=== PATIENT | male | born 1960 | race Caucasian/White ===

== ENCOUNTER → 2018-01-18 00:52 | Outpatient (CLI) | payer OTHER, SELFPAY ==
--- NOTE | 2018-01-18 10:40 | DI.REPORT_ITS ---
SYMPTOM/DIAGNOSIS: S83.241D. TEAR OF MEDIAL MENISCUS MRI RIGHT KNEE: 01/18 MR examination of the knee was performed according to the usual protocol. Note is made of an ACL reconstruction with intact fibers. Appearance is essentially unchanged in comparison with knee MRI of 02/24/17 from the [facility]. Note is again made of mild medial tibiofemoral and patellofemoral articular degenerative changes. Patellar cartilage shows abnormal signal and some clefts noted in the medial facet which are more clearly seen than on the prior examination. No significant patellar subluxation seen. Lateral meniscus appears intact. Medial meniscus is torn with irregularity of the body and posterior horn with a more complex appearance than on the previous examination where there was a vertical tear. No significant collateral ligament injury seen. No significant additional findings. CONCLUSION: 1. 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 Intact reconstructed ACL 3. Body and posterior horn medial meniscal tear, increasing complexity of tear anatomy in comparison with previous MR of 02/24/17.
== END ==
PROVIDERS: PCP Emergency Medicine; Visit Provider Specialist
DX: S83.241D Other tear of medial meniscus, current injury, right knee, subsequent encounter (principal); M25.561 Pain in right knee; M17.11 Unilateral primary osteoarthritis, right knee
CPT/HCPCS: 73721

== ENCOUNTER 2019-05-30 03:06 | Outpatient (CLI) | payer OTHER, SELFPAY ==
[2019-05-30 10:31] LABS: C-Reactive Protein 0.09 mg/dL (0.0-0.3)
[2019-05-30 10:48] LABS: ESR 2 mm/hr (1-20)
[2019-05-30 10:56] LABS: Calculated LDL 102 mg/dL; Cholesterol 159 mg/dL (<200); HDL Cholesterol 46 mg/dL (40-60); Triglyceride 59 mg/dL (<150)
== END 2019-05-30 03:26 ==
PROVIDERS: PCP Emergency Medicine; Visit Provider Emergency Medicine
DX: R53.83 Other fatigue (principal)
CPT/HCPCS: 36415; 80061; 85652; 86140

== ENCOUNTER 2020-01-28 14:00 | Outpatient (CLI) | payer OTHER, SELFPAY ==
--- NOTE | 2020-01-28 13:45 | DI.RAD_ITS ---
EXAM: XR SHOULDER LT COMPLETE 2+V CLINICAL HISTORY: left shoulder pain. TECHNIQUE: 2D digital imaging was performed. COMPARISON: No exams were available for comparison FINDINGS: BONES: No acute fracture is present. No bony destructive lesion is seen. JOINTS: No dislocation present. Mild degenerative changes are seen at the acromioclavicular joint. SOFT TISSUE: Normal. IMPRESSION: Mild degenerative changes of the left AC joint. DATA REPOSITORY: RADIATION DOSE DELIVERED:
== END 2020-01-28 14:20 ==
PROVIDERS: PCP Emergency Medicine; Referring Provider Emergency Medicine; Visit Provider Student in an Organized Health Care Education/Training Program
DX: M19.012 Primary osteoarthritis, left shoulder (principal)
CPT/HCPCS: 73030

== ENCOUNTER 2020-04-10 03:26 | Outpatient (CLI) | payer OTHER, SELFPAY ==
--- NOTE | 2020-04-10 07:15 | DI.MRI_ITS ---
EXAM: MR UPPER JOINT LT WO CLINICAL HISTORY: Failed conservative treatments,TENDINITIS,M75.52,M75.22,M75.82. TECHNIQUE: Multiplanar multisequence MRI was performed. COMPARISON: CR XR SHOULDER LT COMPLETE 2+V from 01/28/2020 FINDINGS: BONES: There is no fracture or contusion pattern. JOINTS: Moderate degenerative changes are seen at the acromioclavicular joint. The glenohumeral join t is normal. TENDONS: Supraspinatus: Mild tendinosis of the supraspinatus tendon. Focus of hyperintense signal seen on the bursal surface of the supraspinatus tendon at its insertion site consistent with a small partial tea r. Infraspinatus: Unremarkable. Subscapularis: Hyperintense signal is seen in the subscapularis tendon near its insertion site consis tent with a partial tear and/or tendinosis. Teres Minor: Unremarkable. Biceps and Tennyson: Unremarkable. MUSCLES: Unremarkable. GLENOID LABRUM: Unremarkable on this noncontrast examination. SOFT TISSUES: Mild edema is seen in the soft tissues of the anterior shoulder. LIGAMENTS: Unremarkable. OTHER: Mild edema is seen in the subacromial subdeltoid bursa. IMPRESSION: 1. Small partial bursal surface tear of the supraspinatus tendon. 2. Hyperintense signal seen in the subscapularis tendon near its insertion site consistent with a par tial tear and/or tendinosis. 3. Moderate degenerative changes of the AC joint. 4. Edema seen in the soft tissues anterior to the shoulder. DATA REPOSITORY:
== END 2020-04-10 03:46 ==
PROVIDERS: PCP Emergency Medicine; Visit Provider Student in an Organized Health Care Education/Training Program
DX: M75.112 Incomplete rotator cuff tear or rupture of left shoulder, not specified as traumatic (principal); M19.012 Primary osteoarthritis, left shoulder; M75.52 Bursitis of left shoulder; M75.82 Other shoulder lesions, left shoulder
CPT/HCPCS: 73221

== ENCOUNTER 2020-06-30 10:46 | Outpatient (CLI) | payer OTHER, SELFPAY ==
--- NOTE | 2020-06-30 08:45 | DI.RAD_ITS ---
EXAM: XR KNEE RT 4V AP,LAT,GREG,PAT CLINICAL HISTORY: L knee pain. TECHNIQUE: 2D digital imaging was performed. COMPARISON: No exams were available for comparison FINDINGS: BONES: No acute fracture is present. No bony destructive lesion is seen. Findings of a prior ACL repa ir are noted. JOINTS: The knee is normally aligned. There is a small joint effusion. Mild degenerative changes are seen in the right knee characterized by joint space narrowing and periarticular spurring. The findi ngs are most marked in the medial femoral tibial and patellofemoral joint. SOFT TISSUE: Normal. IMPRESSION: 1. Mild degenerative changes of the right knee. 2. Small joint effusion. 3. Prior ACL repair. DATA REPOSITORY: RADIATION DOSE DELIVERED:
== END 2020-06-30 10:47 | disposition home or self-care (01) ==
PROVIDERS: PCP Emergency Medicine; Referring Provider Emergency Medicine; Visit Provider Physician Assistant
DX: M17.11 Unilateral primary osteoarthritis, right knee (principal); M25.461 Effusion, right knee; M25.569 Pain in unspecified knee
CPT/HCPCS: 73564

== ENCOUNTER 2020-07-17 01:13 | Outpatient (CLI) | payer MEDICAID, SELFPAY ==
--- NOTE | 2020-07-17 08:45 | DI.MRI_ITS ---
EXAM: MR LOWER JOINT RT WO CLINICAL HISTORY: Medial meniscal tear,POST TRAUMATIC OA,S83.241A,M17.31,PRIOR SURGERIES. TECHNIQUE: Multiplanar multisequence MRI was performed. COMPARISON: MR MRI R LOWER JOINT WO CONT from 01/18/2018 CR XR KNEE RT 4V AP,LAT,GREG,PAT from 06/30/2020 CR XR KNEE RT 4V AP,LAT,GREG,PAT from 06/30/2020 FINDINGS: There is a small joint effusion. There is mild irregularity at the patellar cartilage. No focal de fect is seen. The patient has had a previous ACL repair which appears intact. There is no change in the appearance from the previous exam. The posterior horn of the medial meniscus is diminutive, con sistent with postsurgical changes. Small bony densities seen adjacent to the posterior horn of the m edial meniscus. This density can be seen on plain films.. The lateral meniscus appears intact. The posterior cruciate ligament, medial and lateral collateral ligaments and extensor mechanism appear i ntact. IMPRESSION: Intact ACL graft. Postsurgical changes of the posterior horn and body of the medial meniscus. No de finite superimposed tear is seen. DATA REPOSITORY:
== END 2020-07-17 01:14 ==
LOC: DI 01:14
PROVIDERS: PCP Emergency Medicine; Visit Provider Student in an Organized Health Care Education/Training Program
DX: M17.31 Unilateral post-traumatic osteoarthritis, right knee (principal); M25.461 Effusion, right knee; S83.241A Other tear of medial meniscus, current injury, right knee, initial encounter
CPT/HCPCS: 73721

== ENCOUNTER 2020-09-01 02:50 | Outpatient (CLI) | payer MEDICAID, SELFPAY ==
[2020-09-01 11:59] LABS: Source Nasal/Nares
[2020-09-01 15:51] LABS: COVID-19 PCR Negative (Negative)
== END 2020-09-01 02:51 | disposition home or self-care (01) ==
LOC: LBO 02:50
PROVIDERS: PCP Emergency Medicine; Visit Provider Student in an Organized Health Care Education/Training Program
DX: Z20.822 Contact with and (suspected) exposure to COVID-19 (principal); Z01.818 Encounter for other preprocedural examination
CPT/HCPCS: 87635

== ENCOUNTER 2020-09-03 11:31 | Day surgery (SDC) | payer OTHER, MEDICAID, SELFPAY ==
[2020-09-03] VITALS (9 sets, daily range): BP systolic 112–136; BP diastolic 61–88; PULSE 70–98; RESP 13–20; TEMP 36–36.6; O2SAT 94–100
[2020-09-03] MEDS: Lactated Ringers 1,000 ML 100 ML IV (11:59)
[2020-09-03] MEDS: ceFAZolin 2 GM/50 ML BAG IVPB (12:53)
[2020-09-03] MEDS: EPINEPHrine 30 MG/30 ML VIAL (13:42)
--- NOTE | 2020-09-03 14:21 | PDOC.DSDIS_ITS ---
Discharge Plan Disposition Patient Disposition: HOME Condition: Stable Discharge Details Attending Provider: Eric Martinez Primary Care Provider: Jack Nicholson Home Meds and New Rx's Prescriptions: New naproxen 250 mg tablet 250 - 500 mg PO BID PRN (Reason: Moderate pain or swelling) Qty: 60 RF: 0 aspirin 81 mg tablet,delayed release (DR/EC) 81 mg PO DAILY 14 Days Qty: 14 RF: 0 oxycodone 5 mg tablet 5 - 10 mg PO Q4H PRN (Reason: moderate to severe pain) Qty: 12 RF: 0 Continued multivitamin [Daily Multi-Vitamin] 1 EACH tablet 1 ea PO DAILY RF: 0 Discontinued ibuprofen 200 MG capsule 1 - 3 cap PO BID PRNRF: 0 Discharge Instructions Additional Instructions: Surgery: Knee arthroscopy with partial medial and lateral meniscectomy, chondroplasty, and synovectomy Activity: Weightbearing as tolerated. Advance range of motion as comfort allows. No knee brace or crutches needed as soon as comfortable. Recommend avoiding deep knee flexion, cutting/pivoting, and squatting for about 6 weeks. A physical therapy prescription will be provided in the office at follow-up if needed. Prescriptions: Aspirin 81 mg take 1 daily to prevent a blood clot for 30 days Naproxen 250 mg take 1-2 every 12 hours with a meal as needed for moderate pain Oxycodone 5 mg take 1-2 every 4-6 hours as needed for severe pain You may use itct-lat-divjubl Tylenol (acetaminophen) as needed for mild pain. These pain medications may be taken all at once or in different combinations as needed. Also, recommend Colace (docusate) as a stool softener as surgery and pain medicine cause constipation. Dressings: Leave dressing in place for 3 days. May then remove and leave open to air or cover incisions with Band-Aids. May shower after 5 days. Follow-up: 10-[address] Martinez (09/15/20 at 9:00 AM) Let us know right away if you develop any redness, drainage, fevers, chest pain, or trouble breathing. Do not drink alcohol or drive for at least 24 hours after anesthesia. Please call the office during business hours with any questions or concerns. Referrals: Eric Martinez MD [ [facility] STAFF PHYSICIAN] - Discharge Orders Discharge Orders: Discharge Order (Routine); Ordered 09/03/20 Ordered By: Eric Martinez DS: Diagnosis Discharge Diagnosis (1) Post-traumatic osteoarthritis of right knee: Status: Acute (2) Tear of medial meniscus of right knee: Status: Acute
--- NOTE | 2020-09-03 14:33 | ROE_ITS ---
Date of service: 09/03/20 Time of Service: 13:30 Operative Note Operative Note DATE OF PROCEDURE: 09/03/20 PRE-OP DIAGNOSIS: Right knee 1. Medial meniscus tear 2. Synovitis 3. Chondromalacia POST-OP DIAGNOSIS: other Right knee 1. Medial meniscus tear 2. Synovitis 3. Chondromalacia 4. Lateral meniscus tear PROCEDURE: Right knee 1. Partial medial & lateral meniscectomy, CPT #50609 2. Greater than 2 compartment synovectomy, CPT #45453: Anteromedial, anterolateral, intercondylar, and patellofemoral 3. Chondroplasty, CPT #00380: Lateral tibial plateau, medial femoral condyle, and trochlea SURGEON: Eric Martinez [place] BAIL[place]: None None ANESTHESIA TYPE: Local By Surgeon and General LMA/ETT Refer to Anesthesia Record ESTIMATED BLOOD LOSS: 5 PATHOLOGY: none sent TOURNIQUET TIME: 0 COMPLICATIONS: None Patient was transported to: PACU Patient's condition: stable Indications: Please see complete medical record for details. Findings: Exam under anesthesia: About 5 degree flexion contracture. Stable endpoint on Radha and anterior drawer testing with a mild amount of increased anterior translation. Negative pivot shift. Full flexion. Stable varus/valgus. Arthroscopic findings: Moderate synovitis patellofemoral, medially, laterally, and intercondylar area. Medial femoral condyle grade 2?3 widespread chondromalacia. Isolated central lateral tibial plateau grade 2 and surrounding grade I chondromalacia. Fairly dispersed grade 1?2 chondromalacia trochlea and patella. Largely intact lateral meniscus with small white zone tear anterior horn. Diminutive post?meniscectomy medial meniscus body/posterior horn junction with horizontal type tear of the posterior horn and slight extension past the junction into the body. Intact root and intact remainder of meniscus body. No loose body. Longstanding ACL reconstruction grossly intact but significant fraying of fibers and separation between bundles of fibers. Procedure Description: In the operating room, genral anesthesia was induced. The patient was positioned supine on the operating room table. All bony prominences were well-padded. Preoperative antibiotics were administered. The knee was prepped and draped in the usual sterile fashion. The correct patient, procedure, and side of the procedure were all verified prior to incision. Exam under anesthesia was performed. 10 cc of 1% lidocaine containing epinephrine was infiltrated about the planned anteromedial and anterolateral knee arthroscopy portals. The portals were established and a complete diagnostic arthroscopy was performed with relevant findings detailed above. The mechanical shaver was used to remove pathologic synovium from the anteromedial, anterolateral, intercondylar, and patellofemoral compartments. Care was taken especially working in the intercondylar area to debride marginal osteophytes and synovitis while preserving the PCL and ACL. The frayed ACL fibers were only gently debrided and the loose and disorganized other fibers and bundles were left to continue to provide the stability as the patient does not have ACL laxity although they were significantly abnormal. The mechanical shaver was directed into the lateral compartment in the [id number] position. It was used to debride fibrillations about the central lateral tibial plateau cartilage. It was also used to excise the small anterior horn lateral meniscus tear to a stable margin. Attention was then directed to the majority of work in the medial compartment. Using a combination of hand instruments including meniscal biters and the power shaver and working through the anteromedial and anterolateral compartments the meniscus was debrided of all torn tissue to a stable margin. Care was taken to preserve as much meniscus tissue was possible. The meniscal remnant was probed and found to have a stable margin, stable root, and no other tears and contoured appropriately into the meniscal body. The arthroscope was directed from anterior lateral into the posterior medial compartment of the knee. There was no loose body, meniscal fragments, or pathology posteriorly. Finally, the mechanical shaver was used to debride frayed cartilage edges about the central and medial trochlea as well as moderate area of cartilage fraying. Under direct arthroscopic visualization an 18-gauge needle was passed into the knee from superolateral into the suprapatellar pouch. The knee was copiously irrigated with arthroscopic fluid until there was a clear effluent before being drained of all fluid. The anteromedial and anterolateral portals were closed in 3-0 Monocryl in a buried interrupted fashion. 20 cc of 1% lidocaine with epinephrine containing 4 mg of morphine was infiltrated into the knee through the previously placed needle. Mastisol, Steri-Strips, and 4 x 4 gauze were applied over the incisions followed by sterile soft roll. The knee was then wrapped gently with an LUNA comressive bandage. The patient awoke from anesthesia without complication and was transferred to the recovery room in a stable condition. Although there was significant tri?compartmental knee pathology, the patellofemoral and lateral compartments were reasonably preserved. The ACL reconstruction is abnormal, but provides enough stability. If the patient's symptoms truly remain isolated to the posterior medial knee, would discuss risks and benefits of medial unicondylar knee arthroplasty.
[2020-09-03] MEDS: fentaNYL 100 MCG/2 ML VIAL IVP ×2 (14:50→15:07)
[2020-09-03] MEDS: oxyCODONE 5 MG TAB PO ×2 (15:38→16:05)
== END 2020-09-03 16:45 | disposition home or self-care (01) ==
PROVIDERS: PCP Emergency Medicine; Visit Provider Student in an Organized Health Care Education/Training Program
PROC: (CPT 29870; principal; 2020-09-03 13:00)
DX: M17.31 Unilateral post-traumatic osteoarthritis, right knee (principal); S83.241A Other tear of medial meniscus, current injury, right knee, initial encounter; S83.281A Other tear of lateral meniscus, current injury, right knee, initial encounter; M65.861 Other synovitis and tenosynovitis, right lower leg; M94.261 Chondromalacia, right knee; X58.XXXA Exposure to other specified factors, initial encounter
CPT/HCPCS: 29876; 29880; J0690; J1100; J1885; J2001; J2405; J3010

== ENCOUNTER 2020-10-13 21:48 | Outpatient (REF) | payer MEDICAID, SELFPAY ==
[2020-10-13 20:37] LABS: Abs Immature Grans 0.01 10^3/uL (0.0-0.06); Absolute Basophil Count 0.03 10^3/uL (0.0-0.2); Absolute Eosinophil Count 0.21 10^3/uL (0.0-0.7); Absolute Lymphocyte Count 1.39 10^3/uL (1.2-3.4); Absolute Monocyte Count 0.68 10^3/uL (0.1-0.8); Basophils % 0.7; Eosinophils % 4.8; HCT 44.4 % (40.0-50.0); Immature Grans % 0.2; Lymphocytes % 31.4; MCH 32.6 pg (27.0-33.0); MCHC 33.8 % (32.0-36.0); MCV 96.5 fL (80-95); MPV 11.1 fL (8.0-11.0); Monocytes % 15.4; Neutrophils % 47.5; Nucleated RBC 0 %; Platelet Count 161 10^3/uL (130-400); RDW 12.5 % (11.8-14.1); RDW-SD 45.1 fL; WBC 4.42 10^3/uL (4.4-10.8)
[2020-10-13 21:09] LABS: ALT 46 U/L (16-63); AST 29 U/L (15-37); Albumin 3.8 g/dL (3.4-5.0); Alkaline Phosphatase 51 U/L (46-116); BUN 14 mg/dL (7-18); Bilirubin, Total 0.5 mg/dL (0.2-1.0); C-Reactive Protein 0.67 mg/dL (0.0-0.3); Calcium 8.4 mg/dL (8.5-10.1); Chloride 108 mmol/L (98-107); Glucose 81 mg/dL (74-106); Potassium 3.7 mmol/L (3.5-5.1); Sodium 145 mmol/L (136-145); TSH 1.43 uIU/mL (0.36-3.74); Total Protein 6.7 g/dL (6.4-8.2)
[2020-10-19 15:48] LABS: IgA 164 mg/dL (85-499); Interpretation (See Note); Tissue Transglutaminase IgA <1.2 U/mL (<4.0)
== END 2020-10-13 21:49 | disposition home or self-care (01) ==
LOC: NCHCN 21:48
PROVIDERS: PCP Emergency Medicine; Visit Provider Emergency Medicine
DX: R53.83 Other fatigue (principal); K58.9 Irritable bowel syndrome, unspecified; E03.9 Hypothyroidism, unspecified
CPT/HCPCS: 80053; 82784; 83516; 84443; 85025; 86140

== ENCOUNTER 2021-01-21 03:41 | Outpatient (CLI) | payer MEDICAID, SELFPAY ==
[2021-01-28 11:16] LABS: Testosterone, Free 11.5 ng/dL (3.87-14.7); Testosterone, Total 677 ng/dL (240-950)
== END 2021-01-21 03:42 | disposition home or self-care (01) ==
LOC: LBO 03:42
PROVIDERS: PCP Emergency Medicine; Visit Provider Emergency Medicine
DX: R53.83 Other fatigue (principal)
CPT/HCPCS: 36415; 84402; 84403

== ENCOUNTER 2021-05-24 03:09 | Outpatient (CLI) | payer MEDICAID, SELFPAY ==
--- NOTE | 2021-05-24 07:00 | DI.RAD_ITS ---
Exam(s) XR LUMBAR SPINE COMPLETE EXAM: XR LUMBAR SPINE COMPLETE CLINICAL HISTORY: low back pain.m54.50. TECHNIQUE: 2D digital imaging was performed. COMPARISON: No exams were available for comparison FINDINGS: No evidence fracture or listhesis. No pars defects. Mild-moderate disc space narrowing evident at L5-S1 level. Facet joints at this level appear unremar kable as do the facet joints at other levels. Sacroiliac joints appear unremarkable. There is no sc oliosis. No osseous lesions and bone density appears normal. IMPRESSION: There is mild-moderate disc space narrowing at L5-S1 level. DATA REPOSITORY: RADIATION DOSE DELIVERED:
== END 2021-05-24 03:29 ==
PROVIDERS: PCP Emergency Medicine; Visit Provider Emergency Medicine
DX: M54.50 Low back pain, unspecified (principal); M48.07 Spinal stenosis, lumbosacral region
CPT/HCPCS: 72110

== ENCOUNTER 2021-06-08 01:20 | Outpatient (CLI) | payer MEDICAID, SELFPAY ==
--- NOTE | 2021-06-08 06:45 | DI.MRI_ITS ---
Exam(s) MR LUMBAR SPINE WO EXAM: MR LUMBAR SPINE WO CLINICAL HISTORY: Disc herniation with chronic low back pain,m51.16. TECHNIQUE: Multiplanar multisequence MRI was performed. COMPARISON: No exams were available for comparison FINDINGS: MR examination of the lumbosacral spine was performed according to the usual protocol. No significan t bony signal abnormality seen. The conus medullaris appears intact. No significant findings from the T11-12 through the L2-3 levels, no central canal spinal stenosis, di sc herniation, or neural foraminal stenosis. At L3-4, there is a mild broad-based right lateral disc herniation, there could be impingement on the right L4 nerve root at this level, please correlate clinically. There are mild disc bulges at L 4 5 and L5-S1. No disc herniation, central canal spinal stenosis, or neural foraminal stenosis at these levels. IMPRESSION: Right lateral disc herniation at L3-4, please correlate clinically regarding any possibility of impin gement right L4 nerve root. DATA REPOSITORY:
== END 2021-06-08 01:40 ==
PROVIDERS: PCP Emergency Medicine; Visit Provider Emergency Medicine
DX: M51.16 Intervertebral disc disorders with radiculopathy, lumbar region (principal)
CPT/HCPCS: 72148

== ENCOUNTER → 2021-09-16 01:47 | Outpatient (CLI) | payer MEDICAID, SELFPAY | PROVIDERS: PCP Family Medicine; Visit Provider Emergency Medicine ==

== ENCOUNTER 2021-09-16 02:21 | Outpatient (CLI) | payer MEDICAID, SELFPAY | END 2021-09-16 02:22 | disposition home or self-care (01) | LOC: LBO 02:21 | PROVIDERS: PCP Family Medicine; Visit Provider Emergency Medicine ==

== ENCOUNTER 2021-09-27 10:08 | Outpatient (CLI) | payer MEDICAID, SELFPAY ==
--- NOTE | 2021-09-27 10:00 | DI.RAD_ITS ---
Exam(s) XR STANDING ALIGNMENT EXAM: XR STANDING ALIGNMENT CLINICAL HISTORY: preoperative. TECHNIQUE: 2D digital imaging was performed. Standing AP views were performed from the pelvis throu gh the ankles. COMPARISON: CR XR KNEE RT 4V AP,LAT,GREG,PAT from 06/30/2020 MR MR LOWER JOINT RT WO from 07/17/2020 FINDINGS: BONES: No acute fracture is present. No bony destructive lesion is seen. The right femoral head proje cts 5 millimeters superior to the left. JOINTS: Knees: Mild narrowing and periarticular spurring of the medial femoral tibial joint space of the left knee. Prior ACL repair. Left knee joint spaces are well maintained. The ankle joints are well maintained. The right hip joint shows acetabular spurring. Minimal spur a cetabular spurring on the left. SOFT TISSUE: Venous varicosities medial left lower leg. IMPRESSION: Degenerative changes and postsurgical changes of the right knee. Mild leg length discrepancy. DATA REPOSITORY: RADIATION DOSE DELIVERED:
== END 2021-09-27 10:09 | disposition home or self-care (01) ==
LOC: DIORS 10:09
PROVIDERS: PCP Family Medicine; Referring Provider Family Medicine; Visit Provider Physician Assistant Surgical
DX: M17.11 Unilateral primary osteoarthritis, right knee (principal); M21.751 Unequal limb length (acquired), right femur; M16.11 Unilateral primary osteoarthritis, right hip; Z98.890 Other specified postprocedural states
CPT/HCPCS: 77073

== ENCOUNTER 2021-10-08 02:41 | Outpatient (CLI) | payer MEDICAID, SELFPAY ==
[2021-10-08 15:21] LABS: HCT 43.5 % (40.0-50.0); HGB 14.6 g/dL (13.5-17.5); MCH 31.9 pg (27.0-33.0); MCHC 33.6 % (32.0-36.0); MCV 95 fL (80-95); MPV 10.2 fL (8.0-11.0); Platelet Count 157 10^3/uL (130-400); RBC 4.57 10^6/uL (4.36-5.78); RDW 12.3 % (11.8-14.1); RDW-SD 43.5 fL; WBC 4.92 10^3/uL (4.4-10.8)
[2021-10-08 16:13] LABS: ALT 39 U/L (16-63); AST 27 U/L (15-37); Alkaline Phosphatase 65 U/L (46-116); Anion Gap 8.1 mmol/L (3-11); BUN 19 mg/dL (7-18); Bilirubin, Total 0.5 mg/dL (0.2-1.0); C-Reactive Protein 0.09 mg/dL (0.0-0.3); CO2 23.9 mmol/L (21.0-32.0); CREATININE 1.1 mg/dL (0.70-1.30); Calcium 8.1 mg/dL (8.5-10.1); Chloride 107 mmol/L (98-107); Glucose 126 mg/dL (74-106); Potassium 4.1 mmol/L (3.5-5.1); Sodium 139 mmol/L (136-145); TSH 0.94 uIU/mL (0.36-3.74); Total Protein 6.8 g/dL (6.4-8.2)
[2021-10-08 22:12] LABS: PSA, Screening 0.9 ng/mL (<=3.5)
== END 2021-10-08 02:42 | disposition home or self-care (01) ==
LOC: LBO 02:41
PROVIDERS: PCP Family Medicine; Visit Provider Emergency Medicine
DX: Z12.5 Encounter for screening for malignant neoplasm of prostate (principal); R53.83 Other fatigue; E03.9 Hypothyroidism, unspecified
CPT/HCPCS: 36415; 80053; 84153; 85027; 84443; 86140

== ENCOUNTER 2021-11-16 00:52 | Outpatient (CLI) | payer MEDICAID, SELFPAY ==
[2021-11-16 14:35] LABS: Hemoglobin A1C 5.5 % (<5.7)
[2021-11-17 10:27] LABS: Parathyroid Hormone,Intact 69 pg/mL (19-88)
[2021-11-18 20:27] LABS: Vitamin D 25 Total 23.4 ng/mL (30-100)
[2021-11-18 20:39] LABS: Magnesium 2.2 mg/dL (1.8-2.4); PHOSPHORUS 2.8 mg/dL (2.6-4.7)
== END 2021-11-16 00:53 | disposition home or self-care (01) ==
LOC: LOS 00:52
PROVIDERS: PCP Family Medicine; Visit Provider Family Medicine
DX: R73.01 Impaired fasting glucose (principal); E83.51 Hypocalcemia
CPT/HCPCS: 36415; 82306; 83036; 83735; 83970; 84100

== ENCOUNTER → 2021-12-06 02:18 | Outpatient (CLI) | payer MEDICAID, SELFPAY ==
--- NOTE | 2021-12-06 06:45 | DI.MRI_ITS ---
Exam(s) MR BRAIN WO EXAM: MR BRAIN WO CLINICAL HISTORY: worsening daily headaches,R51.9 TECHNIQUE: Multiplanar multisequence MRI of the brain was performed. COMPARISON: No exams were available for comparison FINDINGS: CEREBRAL PARENCHYMA: There is no evidence of intracranial hemorrhage, mass effect, or shift of midline structures. There are no extra-axial fluid collections. Ventricles are not enlarged or shifted. There is no significant focal signal abnormality in the cerebellar hemispheres nor within the noris, m idbrain, and thalami. There is no abnormal signal abnormality in the periventricular white matter. No evidence of cerebellar tonsillar ectopia. There is no significant focal signal abnormality evident on diffusion imaging to suggest acute ischem ic event. PITUITARY GLAND: No mass nor parasellar abnormality. No obvious abnormality in the cavernous sinuses. FLOW VOIDS: The expected flow void are noted. No evidence of obvious aneurysm nor obvious vascular ma lformation. PARANASAL SINUSES: : Thickening noted in floor of the right maxillary sinus. Mild mucosal thickening left maxillary sinus no maxillary sinus fluid levels. Sphenoid cells are clear. Right frontal sinu ses are not developed. ORBITS: No obvious findings. IMPRESSION: No significant intracranial findings on this noninfused MRI scan of the brain. DATA REPOSITORY:
== END ==
PROVIDERS: PCP Family Medicine; Visit Provider Nurse Practitioner Adult Health
DX: R51.9 Headache, unspecified (principal)
CPT/HCPCS: 70551

== ENCOUNTER 2021-12-31 08:15 | Outpatient (CLI) | payer MEDICAID, SELFPAY ==
[2022-01-03 11:46] LABS: Lyme Ab w Rflx to Lyme Confirm Negative (Negative)
[2022-01-04 22:24] LABS: Anaplasma phagocytophilum Negative (Negative); B. miyamotoi PCR Negative (Negative); Babesia divergens/MO-1 Negative (Negative); Babesia duncani Negative (Negative); Babesia microti Negative (Negative); Ehrlichia chaffeensis Negative (Negative); Ehrlichia ewingii/canis Negative (Negative); Ehrlichia muris eauclairensis Negative (Negative)
== END 2021-12-31 08:16 | disposition home or self-care (01) ==
LOC: LOS 08:15
PROVIDERS: PCP Family Medicine; Referring Provider Family Medicine; Visit Provider Family Medicine
DX: R53.83 Other fatigue (principal); F32.89 Other specified depressive episodes
CPT/HCPCS: 36415; 87798; 86618

== ENCOUNTER 2022-02-09 17:46 | Emergency (ER) | payer MEDICAID, SELFPAY ==
[2022-02-09 18:04] VITALS: BP 145/91; PULSE 71; RESP 16; TEMP 36.5
--- NOTE | 2022-02-09 18:16 | ED.GENADUL_ITS ---
Discharge Plan Disposition Patient Disposition: HOME Condition: Stable Discharge Details Clinical Impression: Laceration of left calf Primary Care Provider: Cadence Messina ED Provider: Izabela Feliz Home Meds and New Rx's Prescriptions: New cephalexin 500 mg tablet 500 mg PO BID 7 Days Qty: 14 0RF Rx Instructions: Take 1 tablet twice daily with yogurt or probiotic x7 days oxycodone-acetaminophen [Percocet] 5-325 mg tablet 1 tab PO Q8H PRN (Reason: pain) Qty: 6 0RF Rx Instructions: Take 1 tablet up to 3 times daily as needed for moderate severe pain No Action ibuprofen 200 mg tablet 200 mg PO Q6H PRN omeprazole 20 mg capsule,delayed release(DR/EC) 20 mg PO DAILY Qty: 60 6RF Ajovy Autoinjector 225 mg/1.5 mL auto-injector 225 mg subcut QMONTH Qty: 1.5 3RF sumatriptan succinate 100 mg tablet See Rx Instructions PO .COMPLEX Qty: 10 3RF Rx Instructions: take 1 tab at onset of headache; if no relief, may repeat 1 tab after at least 2 hrs; max = 2 tabs/24 hrs PO duloxetine 60 mg capsule,delayed release(DR/EC) 60 mg PO DAILY Qty: 30 1RF multivitamin [Daily Multi-Vitamin] 1 EACH tablet 1 ea PO DAILY Discharge Instructions Instructions: Laceration (ED) Additional Instructions: Please take the antibiotics twice daily x7 days. Keep clean and dry. You may wash under running soap and water after 12 to 24 hours. No soaking no swimming. Please return to the ER for any signs of infection including red streaks, drainage, increased swelling or pain. Have the sutures removed in 7 to 10 days. Follow up with primary care provider in 3-5 days. Return to ED sooner if any worsening or concerns. Increase oral fluids. You may return here to have the sutures removed. Please take Tylenol or Ibuprofen with food every 4-6 hours as needed for pain and swelling. Referrals: Cadence Messina MD [Primary Care Provider] - Return if symptoms worsen Discharge Data Discharge Date/Time-TO BE ENTERED AT DEPARTURE: 02/09/22 19:59 Medical Decision Making 61-year-old male presents to the ER with chief complaint of left calf laceration [place]. He reports that his 900 pound pig brushed up against his leg and he sustained a cut to his left lateral thigh through his pants. His. Were not ripped. He reports that he was able to walk . His last tetanus vaccination was 10 years ago. Bleeding is controlled with pressure. He has full range of motion noted to his extremity. Please see procedure note. 1834: Wound anesthetized with 10 cc of 1% lidocaine with epinephrine. Bleeding controlled patient tolerated well. Will irrigate with at least 3 bottles of sterile normal saline and place patient on antibiotics. Patient was given cephalexin, Percocet. And instructed on home care and suture removal. Patient verbalized understanding. This text was generated using [employer] dictation system, please disregard any oddities of phrase or misspellings. HPI General Mode of arrival: ambulatory . Date/Time Provider Initiated Documentation: 02/09/22 18:03 . Limitations to Documentation: no limitations . Information obtained by: patient, RN notes reviewed and old records reviewed . HPI Narrative: 61-year-old male presents to the ER with chief complaint of left leg laceration which occurred approximately an hour prior to arrival. 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 His jeans did not rip. He has approximately 9 cm full-th ickness laceration noted to the left outer calf. There is active bleeding. This is controlled with pressure. He has full range of motion noted to his extremity. His last tetanus vaccination was in 2009 we will boost him here. No other complaints or injuries noted. He does have a past medical history of migraines, depression and obstructive sleep apnea. Related Data Home Medications Medication Instructions Recorded Confirmed multivitamin (Daily Multi-Vitamin 1 ea PO DAILY 12/12/16 02/09/22 tablet) ibuprofen 200 mg tablet 200 mg PO Q6H PRN 10/13/20 02/09/22 omeprazole 20 mg capsule,delayed 20 mg PO DAILY #60 caps 05/18/21 02/09/22 release fremanezumab-vfrm 225 mg/1.5 mL 225 mg (1.5 mL) subcut QMONTH #1.5 12/28/21 02/09/22 subcutaneous auto-injector (Ajovy) mL sumatriptan succinate 100 mg tablet See Rx Instructions PO .COMPLEX 12/28/21 02/09/22 #10 tabs duloxetine 60 mg capsule,delayed 60 mg PO DAILY #30 caps 01/06/22 02/09/22 release cephalexin 500 mg tablet 500 mg PO BID 7 days #14 tabs 02/09/22 oxycodone-acetaminophen 5 mg-325 1 tab PO Q8H PRN pain #6 tabs 02/09/22 mg tablet (Percocet) Previous Rx's Medication Instructions Recorded omeprazole 20 mg capsule,delayed 20 mg PO DAILY #60 caps 05/18/21 release fremanezumab-vfrm 225 mg/1.5 mL 225 mg (1.5 mL) subcut QMONTH #1.5 12/28/21 subcutaneous auto-injector (Ajovy) mL sumatriptan succinate 100 mg tablet See Rx Instructions PO .COMPLEX 12/28/21 #10 tabs duloxetine 60 mg capsule,delayed 60 mg PO DAILY #30 caps 01/06/22 release cephalexin 500 mg tablet 500 mg PO BID 7 days #14 tabs 02/09/22 oxycodone-acetaminophen 5 mg-325 1 tab PO Q8H PRN pain #6 tabs 02/09/22 mg tablet (Percocet) Allergies Allergy/AdvReac Type Severity Reaction Status Date / Time prednisone AdvReac Intermediate anxiety Verified 02/09/22 17:56 escitalopram oxalate AdvReac Unknown AGITATION Verified 02/09/22 17:56 [From Lexapro] General Stated Complaint: Laceration CHRISTIANA: 4 Review of Systems All systems reviewed & are unremarkable except as noted in HPI and below Musculoskeletal Musculoskeletal: Reports as per HPI Comments: Laceration to the left lateral calf, it is gaping approximately 8 cm in length slow venous ooze noted. Full range of motion, PFSH All Active Problems (Updated 02/09/22 @ 19:33 by Izabela Feliz NP) Laceration of left calf (Acute) Status migrainosus (Chronic) Migraine headache without aura (Chronic) Migraine headache with aura (Chronic) Fatigue (Chronic) Chronic daily headache (Chronic) DARRYL (obstructive sleep apnea) (Chronic) mild when supine, moderate during REM sleep. unable to tolerate CPAP. Chronic pruritic rash in adult (Chronic) reaction to sun exposure Depressive disorder (Chronic) Medical History (Updated 02/09/22 @ 19:33 by Izabela Feliz NP) Acquired hallux rigidus (10/15/13) left foot Bursitis of left shoulder Left rotator cuff tear Low back pain Lumbar disc herniation with radiculopathy Post-traumatic osteoarthritis of right knee Injection: 04/20/2021 Sciatica of right side (04/20/16) Tear of medial meniscus of right knee Tendinitis of long head of biceps brachii of left shoulder Surgical History (Updated 12/31/21 @ 08:18 by Cadence Messina MD) Gamekeeper's thumb of right hand S/P ACL repair S/P total knee arthroplasty Status post hemorrhoidectomy Family History Mother No problems noted. Father Prostate cancer Sister No problems noted. Brother No problems noted. Maternal Grandfather , AGE 56 PNEUMONIA No problems noted. Paternal Grandfather , AGE 76 Alzheimer disease Maternal Grandmother , age 93 No problems noted. Paternal Grandmother , age 80 Diabetes Depression Son No problems noted. Daughter No problems noted. Social History Smoking/Tobacco Use Status: Never Second Hand Exposure: No Smoking risk assessment performed?: Yes Alcohol Intake: current Alcohol Intake frequency: a few times a month Alcohol type: wine Drug use: Never Substance use type: does not use Caregiver/Support person: No Household members: spouse Housing: house Communication Needs: None Do you need help understanding health information?: Never current occupation: [employer] Pets and animals: Yes Pets and animals: cat(s) Sexually active: Yes Do you think of yourself as: straight/heterosexual Current gender identity: male What is your relationship status?: How often do you talk on the phone with friends or family?: once per week How often do you get together with friends or relatives?: decline to answer How often do you attend synagogue or mandaen services?: decline to answer Do you belong to any clubs or organized social groups?: yes Panel score (0-1 are the most socially isolated patients): 2 What type of physical activity do you participate in: walking Duration: > 90 minutes/day Frequency: daily Mindi/Mormonism: No preference Special mindi needs: No Seatbelt use: always Helmet use: Yes Helmet use: always Drive intox or ride w/intox public transit trolley driver: No Do you feel safe at home: Yes Do you feel safe in your relationship?: Yes Exam Extrem Left lower extremity: lower leg Details: laceration mid lower leg lateral Details: linear, irregular, actively bleeding, involving subcutaneous tissue and with motor nerve function intact Ankle/foot/toe images: 2 1. Approximately 9 cm long laceration noted to the left outer thigh. Course Vital Signs Vital signs: Vital Signs Temperature 36.5 C 02/09/22 18:04 Pulse 71 02/09/22 18:04 Respiratory Rate 16 02/09/22 18:04 Blood Pressure 145/91 H 02/09/22 18:04 Temperature 36.5 C 02/09/22 18:04 Temperature Source Temporal Artery Scan 02/09/22 18:04 Pulse 71 02/09/22 18:04 Respiratory Rate 16 02/09/22 18:04 Respiratory Effort Non-Labored 02/09/22 17:59 Blood Pressure 145/91 H 02/09/22 18:04 Oxygen Delivery Method Room Air 02/09/22 18:04 Oxygen Flow Rate 0 02/09/22 18:04 Pain Level 5 02/09/22 17:53 Procedures Laceration Laceration 1: Site: lower extremity (Left calf) Side (If applicable): left Size (cm): 8 Description: irregular and contaminated Depth: involves muscle layer Local Anesthetic: Lidocaine 1% and with Epi Amount of anesthesia used (mL): 10 Pre-repair: wound explored, irrigated extensively and deep structures intact Skin layer closed with: nylon Size (cm): 3-0 Number of sutures: 14 Technique: simple, interrupted Subcutaneous layer closed with: vicryl Size: 5-0 Number of sutures: 2 Technique: running PAWSS Have you Been Recently Intoxicated or Drunk Within the Last 30 days?: No Have you Ever Experienced Previous Episodes of Alcohol Withdrawal?: No Have you ever Experienced Withdrawal Seizures?: No Have you ever Experienced Delirium Tremens(DT)s?: No Have you ever undergone Alcohol Rehabilitation Treatment (i.e, inpt ot outpatient treatment programs)?: No Have you ever Experienced Blackouts?: No Have you ever Combined Alcohol with other Downers within the last 90 days?: No Have you ever Combined Alcohol with any other Substance of Abuse during the last 90 days?: No Positive Blood Alcohol level on Presentation? [PCS.BAL]: No Evidence of Increased Autonomic Activity (i.e. HR>120, tremor, sweating, agitation, nausea)?: No Result: 0
[2022-02-09] MEDS: Lidocaine 1% Multi-Dose W/EPI 1/100,000 50 ML VIAL (18:28)
[2022-02-09] MEDS: Cephalexin 500 MG CAP PO (18:47)
[2022-02-09] MEDS: Cephalexin 500 MG CAP, 2 CAPS/BTL PO (18:47)
[2022-02-09] MEDS: oxyCODONE 5 mg/Acetaminophen 325 mg TAB 1 TAB PO ×2 (19:49)
== END 2022-02-09 19:59 | disposition home or self-care (01) ==
PROVIDERS: Emergency Provider Registered Nurse Emergency; PCP Family Medicine
DX: S81.812A Laceration without foreign body, left lower leg, initial encounter (principal); Z23 Encounter for immunization; W55.49XA Other contact with pig, initial encounter; Y93.K9 Activity, other involving animal care
CPT/HCPCS: 12034; 90471; 99283

== ENCOUNTER 2022-02-22 06:12 | Emergency (ER) | payer MEDICAID, SELFPAY ==
[2022-02-22 06:18] VITALS: BP 124/78; PULSE 71; RESP 16; TEMP 37; O2SAT 97
--- NOTE | 2022-02-22 06:44 | W.EDPROG ---
Date of service: 02/22/22 Time of Service: 06:46 Medical Decision Making Patient here for suture removal. Sutures in place for 2 weeks now. Previous documentation reports 14 nylon sutures placed. Nursing removed 11. With loops who was able to identify the other 3 and removed those. Discussed continued wound care and risk of infection with patient. Discharged home in good condition. Medical Records Medical records reviewed: Yes I reviewed the patient's medical records. Exam Narrative Exam Narrative: Const: WDWN male in NAD. HEENT: NC/AT. Normal facial exam. Eyes: Normal conjunctiva and sclera. Neck: Supple. Trachea midline. Lungs: Normal respiratory effort. Neuro: A+O x 3. Normal speech, mentation, gait. Cranial nerves II - XII grossly intact. No gross motor or sensory deficit. Ext: No C/C/E. Skin: Warm and dry. Laceration is healed with decent scab formation and mild inflammatory changes peripherally. No evidence of infection. Narrative Patient presenting for suture removal. He sustained a laceration to his left lower extremity and has sutures in which need to be removed. Denies any significant pain, swelling, drainage. Some redness around the wound Discharge Plan Disposition Patient Disposition: HOME Condition: Good Discharge Details Clinical Impression: Encounter for removal of sutures Primary Care Provider: Cadence Messina ED Provider: Julio Taylor Lockhart Santosh and New Rx's Prescriptions: No Action ibuprofen 200 mg tablet 200 mg PO Q6H PRN omeprazole 20 mg capsule,delayed release(DR/EC) 20 mg PO DAILY Qty: 60 6RF Ajovy Autoinjector 225 mg/1.5 mL auto-injector 225 mg subcut QMONTH Qty: 1.5 3RF sumatriptan succinate 100 mg tablet See Rx Instructions PO .COMPLEX Qty: 10 3RF Rx Instructions: take 1 tab at onset of headache; if no relief, may repeat 1 tab after at least 2 hrs; max = 2 tabs/24 hrs PO duloxetine 30 mg capsule,delayed release(DR/EC) 30 mg PO DAILY Qty: 30 1RF Rx Instructions: take each morning. duloxetine 60 mg capsule,delayed release(DR/EC) 60 mg PO DAILY Qty: 30 1RF Rx Instructions: take each night. multivitamin [Daily Multi-Vitamin] 1 EACH tablet 1 ea PO DAILY oxycodone-acetaminophen [Percocet] 5-325 mg tablet 1 tab PO Q8H PRN (Reason: pain) Qty: 6 0RF Rx Instructions: Take 1 tablet up to 3 times daily as needed for moderate severe pain Discharge Instructions Additional Instructions: Your wound still needs to heal so will be important to keep it clean and covered as we discussed. Watch for any signs of infection which will include increasing pain, swelling, fever, redness and return to ED or follow-up with PCP if such occurs.
--- NOTE | 2022-02-22 07:15 | ED.PROG_ITS ---
Date of service: 02/22/22 Time of Service: 06:30 Medical Decision Making Patient presenting for suture removal. Discharge Plan Disposition Patient Disposition: HOME Condition: Good Discharge Details Clinical Impression: Encounter for removal of sutures Primary Care Provider: Cadence Messina ED Provider: Julio Taylor [place] Meds and New Rx's Prescriptions: No Action ibuprofen 200 mg tablet 200 mg PO Q6H PRN omeprazole 20 mg capsule,delayed release(DR/EC) 20 mg PO DAILY Qty: 60 6RF Ajovy Autoinjector 225 mg/1.5 mL auto-injector 225 mg subcut QMONTH Qty: 1.5 3RF sumatriptan succinate 100 mg tablet See Rx Instructions PO .COMPLEX Qty: 10 3RF Rx Instructions: take 1 tab at onset of headache; if no relief, may repeat 1 tab after at least 2 hrs; max = 2 tabs/24 hrs PO duloxetine 30 mg capsule,delayed release(DR/EC) 30 mg PO DAILY Qty: 30 1RF Rx Instructions: take each morning. duloxetine 60 mg capsule,delayed release(DR/EC) 60 mg PO DAILY Qty: 30 1RF Rx Instructions: take each night. multivitamin [Daily Multi-Vitamin] 1 EACH tablet 1 ea PO DAILY oxycodone-acetaminophen [Percocet] 5-325 mg tablet 1 tab PO Q8H PRN (Reason: pain) Qty: 6 0RF Rx Instructions: Take 1 tablet up to 3 times daily as needed for moderate severe pain Discharge Instructions Additional Instructions: Your wound still needs to heal so will be important to keep it clean and covered as we discussed. Watch for any signs of infection which will include increasin g pain, swelling, fever, redness and return to ED or follow-up with PCP if such occurs. Discharge Data Discharge Date/Time-TO BE ENTERED AT DEPARTURE: 02/22/22 07:59
== END 2022-02-22 07:59 | disposition home or self-care (01) ==
PROVIDERS: Emergency Provider Emergency Medicine; PCP Family Medicine
DX: S81.812D Laceration without foreign body, left lower leg, subsequent encounter (principal); X58.XXXD Exposure to other specified factors, subsequent encounter
CPT/HCPCS: 99281

== ENCOUNTER 2022-05-05 01:40 | Outpatient (CLI) | payer MEDICAID, SELFPAY ==
[2022-05-05 14:03] LABS: MCH 32.3 pg (27.0-33.0); MCHC 33.3 % (32.0-36.0); MCV 97 fL (80-95); MPV 9.9 fL (8.0-11.0); Platelet Count 170 10^3/uL (130-400); RBC 4.95 10^6/uL (4.36-5.78); RDW 12.4 % (11.8-14.1); RDW-SD 44.9 fL; WBC 7.05 10^3/uL (4.4-10.8)
[2022-05-05 15:26] LABS: Anion Gap 8.8 mmol/L (3-11); BUN 16 mg/dL (7-18); CO2 28.2 mmol/L (21.0-32.0); CREATININE 1.1 mg/dL (0.70-1.30); Calcium 8.9 mg/dL (8.5-10.1); Chloride 103 mmol/L (98-107); Estimated GFR 77.33 (mL/min/1.73m2); Glucose 102 mg/dL (74-106); Potassium 4.5 mmol/L (3.5-5.1); Sodium 140 mmol/L (136-145)
== END 2022-05-05 01:41 | disposition home or self-care (01) ==
LOC: LBO 01:40
PROVIDERS: PCP Family Medicine; Visit Provider Student in an Organized Health Care Education/Training Program
DX: M17.11 Unilateral primary osteoarthritis, right knee (principal); Z01.818 Encounter for other preprocedural examination
CPT/HCPCS: 36415; 80048; 85027

== ENCOUNTER 2022-05-17 07:22 | Day surgery (SDC) | payer MEDICAID, SELFPAY ==
[2022-05-17] VITALS (8 sets, daily range): BP systolic 99–133; BP diastolic 63–86; PULSE 57–89; RESP 13–18; TEMP 36–36.5; O2SAT 93–99; BMI 27.4
--- NOTE | 2022-05-17 07:31 | DSE_ITS ---
Date of service: 05/17/22 Time of Service: 13:53 DS: Diagnosis Discharge Diagnosis (1) Post-traumatic osteoarthritis of right knee: Status: Acute Discharge Plan Disposition Patient Disposition: Home Condition: Good Discharge Details Reason For Visit: Right knee DJD Attending Provider: Eduard Gary Primary Care Provider: Cadence Messina Home Meds and New Rx's Prescriptions: New acetaminophen 500 mg tablet 500 mg PO Q6H PRN (Reason: pain) Qty: 60 2RF aspirin 81 mg tablet,delayed release (DR/EC) 81 mg PO BID 30 Days Qty: 60 0RF celecoxib [Celebrex] 200 mg capsule 200 mg PO BID Qty: 30 0RF docusate sodium [Colace] 100 mg capsule 100 mg PO BID Qty: 30 0RF gabapentin 300 mg capsule 300 mg PO QHS Qty: 14 0RF Rx Instructions: Take one tablet at bedtime oxycodone 5 mg tablet 5 mg PO Q4H PRN (Reason: severe post-operative pain) Qty: 18 0RF Rx Instructions: Take one tablet up to every 4 hours as needed for severe pain Continued omeprazole 20 mg capsule,delayed release(DR/EC) 20 mg PO DAILY Qty: 60 6RF duloxetine 60 mg capsule,delayed release(DR/EC) 60 mg PO BID Qty: 60 0RF multivitamin [Daily Multi-Vitamin] 1 EACH tablet 1 ea PO DAILY Emgality Pen 120 mg/mL pen injector 120 mg subcut ONCE Qty: 1 11RF rizatriptan 10 mg tablet See Rx Instructions PO .COMPLEX PRN Rx Instructions: take 1 tab at onset of headache; if no relief may repeat 1 tab after at least 2 hrs; max = 2 tabs/24 hr PO Discontinued ibuprofen 200 mg tablet 200 mg PO Q6H PRN Discharge Instructions Additional Instructions: Total Knee Discharge Instructions Activity: The most important activity is to walk and to work on gentle motion (both flexion and extension). You should try to take short walks a few times a day. It is important that when resting you work on keeping the knee straight. Avoid putting a pillow behind the knee as this will encourage flexion. Work on range of motion exercises as provided by Physical Therapy. - Start outpatient physical therapy within 2 weeks. - You should wear the KEVIN hose on both legs for 2 weeks. You may remove these at night. You may also use any compression sock in place of the KEVIN hose. - Utilize [employer] to review exercises, see videos on exercises and obtain basic information pertaining to your surgery and your recovery. Dressing: Remove the Javier wrap by 2 days after your surgery and put on the KEVIN stocking given to you from the hospital. Keep the surgical dressing (underneath the JAVIER wrap) in place for at least one week. After the first week it may be removed and replaced with light gauze and tape or nothing. The wound and dressing may get wet after 3 days but avoid soaking the dressing or otherwise it will need to be changed. Many people prefer covering the dressing with cling wrap (saran wrap) to minimize it from getting soaked. If it gets wet, just pat dry. If it starts to peel off then it will need to be changed. Medications: - You should take Tylenol and anti-inflammatory Celebrex as your primary pain control medications. If the Celebrex is too expensive or not covered, please call the office for another alternative (Advil/Ibuprofen or Naproxen/Aleve) - You have been prescribed a stronger pain medication Oxycodone for breakthrough pain, take as needed as prescribed. - You have also been prescribed a stomach acid reduction agent Pantoprozole to help reduce stomach acid and reflux. - You have been prescribed Gabapentin to take at night for restlessness and nerve pain. - You will be taking Aspirin 81mg twice a day for DVT prevention unless instructed otherwise. - If you have constipation you should take Colace (which has been prescribed) or Miralax (which is [id number]). It takes most people 3-4 days to have a bowel movement. Follow-up: 2 weeks If you have any acute concerns or questions, please do not hesitate to contact the office at [phone]. You may contact Dr. Gary with any questions after hours through the hospital at [phone] or on his cell phone at [phone]. Referrals: Eduard Gary MD [ [facility] STAFF PHYSICIAN] - Equipment/Supplies: Walker Activity:: Elevate Remove Dressings/Wound Care:: Do Not Remove Shower/Bathe:: Cover Diet:: As Tolerated Discharge Orders Discharge Orders: Discharge Order (Routine); Ordered 12/20/22 Ordered By: Eduard Gary DS: Summary Time Spent with Patient providing and/or coordinating discharge services: Less than 30 minutes Status at Discharge Functional status at discharge: uses cane/walker Overall status at discharge: patient is progressing back to baseline Mental Status: mental status grossly normal Speech and Movement: speech and movement normal Mood: congruent mood Affect: normal affect Exam Psych Mental Status: mental status grossly normal Speech and Movement: speech and movement normal Mood: congruent mood Affect: normal affect PFSH All Active Problems Depressive disorder (Chronic) Post-traumatic osteoarthritis of right knee (Acute) Injection: 04/20/2021 Chronic pruritic rash in adult (Chronic) reaction to sun exposure DARRYL (obstructive sleep apnea) (Chronic) mild when supine, moderate during REM sleep. unable to tolerate CPAP. Chronic daily headache (Chronic) Fatigue (Chronic) Migraine headache with aura (Chronic) Migraine headache without aura (Chronic) Status migrainosus (Chronic) Medical History Acquired hallux rigidus (10/15/13) left foot Bursitis of left shoulder Left rotator cuff tear Low back pain Lumbar disc herniation with radiculopathy Sciatica of right side (04/20/16) Tear of medial meniscus of right knee Tendinitis of long head of biceps brachii of left shoulder Surgical History Gamekeeper's thumb of right hand History of arthroscopic knee surgery History of colonoscopy S/P ACL repair Status post hemorrhoidectomy Family History Mother No problems noted. Father Prostate cancer Sister No problems noted. Brother No problems noted. Maternal Grandfather , AGE 56 PNEUMONIA No problems noted. Paternal Grandfather , AGE 76 Alzheimer disease Maternal Grandmother , age 93 No problems noted. Paternal Grandmother , age 80 Diabetes Depression Son No problems noted. Daughter No problems noted. Social History Smoking/Tobacco Use Status: Never Second Hand Exposure: No Smoking risk assessment performed?: Yes Alcohol Intake: current Alcohol Intake frequency: a few times a month Alcohol type: wine Drug use: Never Substance use type: does not use Caregiver/Support person: No Household members: spouse Housing: house Communication Needs: None Do you need help understanding health information?: Never current occupation: POE Pets and animals: Yes Pets and animals: cat(s) Sexually active: Yes Do you think of yourself as: straight/heterosexual Current gender identity: male What is your relationship status?: How often do you talk on the phone with friends or family?: once per week How often do you get together with friends or relatives?: decline to answer How often do you attend restorationist or christian services?: decline to answer Do you belong to any clubs or organized social groups?: yes Panel score (0-1 are the most socially isolated patients): 2 What type of physical activity do you participate in: walking Duration: > 90 minutes/day Frequency: daily Mindi/Tenriism: No preference Special mindi needs: No Seatbelt use: always Helmet use: Yes Helmet use: always Drive intox or ride w/intox line haul driver: No
[2022-05-17] MEDS: Lactated Ringers 1,000 ML 80 ML IV (08:04)
--- NOTE | 2022-05-17 08:06 | W.ANESPRE ---
General Info Date of Service Date Performed: 05/17/22 Height: 6 ft Weight: 91.9 kg Body Mass Index (BMI): 27.4 Surgical Procedure: Operation Date: 05/17/22 09:25 Proposed Procedure Side Surgeon p Knee Total Arthroplasty Cementless CR Right Eduard Gary MD Meds Allergies and Home Medications Allergies Allergy/AdvReac Type Severity Reaction Status Date / Time prednisone AdvReac Intermediate anxiety Verified 05/17/22 07:45 escitalopram oxalate AdvReac Unknown AGITATION Verified 05/17/22 07:45 [From Lexapro] Home Medication Medication Instructions Recorded multivitamin (Daily Multi-Vitamin 1 ea PO DAILY 12/12/16 tablet) omeprazole 20 mg capsule,delayed 20 mg PO DAILY #60 caps 05/18/21 release duloxetine 60 mg capsule,delayed 60 mg PO BID #60 caps 04/18/22 release galcanezumab-gnlm 120 mg/mL 120 mg subcut ONCE #1 mL 05/09/22 subcutaneous pen injector (Emgality Pen) rizatriptan 10 mg tablet See Rx Instructions PO .COMPLEX PRN 05/13/22 acetaminophen 500 mg tablet 500 mg PO Q6H PRN pain #60 tabs 05/17/22 aspirin 81 mg tablet,delayed 81 mg PO BID 30 days #60 tabs 05/17/22 release celecoxib 200 mg capsule (Celebrex) 200 mg PO BID #30 caps 05/17/22 dexamethasone 4 mg tablet 4 mg PO DAILY #2 tabs 05/17/22 docusate sodium 100 mg capsule 100 mg PO BID #30 caps 05/17/22 (Colace) gabapentin 300 mg capsule 300 mg PO QHS #14 caps 05/17/22 oxycodone 5 mg tablet 5 mg PO Q4H PRN severe 05/17/22 post-operative pain #18 tabs Current Visit Medications: Current Medications Generic Name Dose Route Start Last Admin Trade Name Freq PRN Reason Stop Dose Admin Acetaminophen 1,000 mg 05/17/22 06:00 Acetaminophen 500 Mg Tab PO 05/17/22 16:00 PREOP ETHAN Acetaminophen 1,000 mg 05/17/22 14:00 Acetaminophen 500 Mg Tab PO TID [facility] Aspirin 81 mg 05/17/22 20:00 Aspirin E.C. 81 Mg Tabec PO BID [facility] Celecoxib 400 mg 05/17/22 06:00 Celecoxib 200 Mg Cap PO 05/17/22 16:00 PREOP ETHAN Celecoxib 200 mg 05/17/22 20:00 Celecoxib 200 Mg Cap PO BID TEHAN Docusate Sodium 100 mg 05/17/22 07:27 Docusate Sodium 100 Mg Cap PO BID PRN PRN Constipation Gabapentin 300 mg 05/17/22 06:00 Gabapentin 300 Mg Cap PO 05/17/22 16:00 PREOP ETHAN Gabapentin 300 mg 05/17/22 22:00 Gabapentin 300 Mg Cap PO HS ETHAN Hydromorphone HCl 0.5 mg 05/17/22 07:27 Hydromorphone 2 Mg/Ml Syr IVP Q2H PRN PRN Tranexamic Acid 1,000 mg/ 60 mls @ 360 mls/hr 05/17/22 06:00 Sodium Chloride IVPB 05/17/22 16:00 PREOP ETHAN Ringer's Solution 1,000 mls @ 80 mls/hr 05/17/22 06:00 IV 06/15/22 23:59 INFUSION ETHAN Cefazolin Sodium/Dextrose 2 gm in 50 mls @ 100 mls/hr 05/17/22 06:00 Ancef Duplex IVPB 06/15/22 23:59 PREOP ETHAN Cefazolin Sodium/Dextrose 1 gm in 50 mls @ 100 mls/hr 05/17/22 08:00 Ancef Duplex IVPB 05/18/22 00:29 Q8H ETHAN IV Miscellaneous Supplies 1 each 05/17/22 06:00 Iv Access IV 06/15/22 23:59 DIRECTED ETHAN Ondansetron HCl 4 mg 05/17/22 07:27 Ondansetron 4 Mg/2 Ml Vial IVP Q6H PRN PRN Nausea Oxycodone HCl 0 mg 05/17/22 07:27 Oxycodone 5 Mg Tab PO Q3H PRN PRN Pain Pantoprazole Sodium 40 mg 05/18/22 07:30 Pantoprazole 40 Mg Tabcr PO DAILY@0730 ETHAN Polyethylene Glycol 17 gm 05/17/22 07:27 Polyethylene Glycol 3350 17 Gm Packet PO BID PRN PRN Constipation Sodium Chloride 0 ml 05/17/22 06:00 Normal Saline Flush 10 Ml Syr IV 06/15/22 23:59 PRN PRN Sodium Chloride 0 ml 05/17/22 06:00 Normal Saline 10 Ml Vial IJ 06/15/22 23:59 DIRECTED PRN Sterile Water 0 ml 05/17/22 06:00 Water,Injection,Sterile 10 Ml Vial IJ 06/15/22 23:59 DIRECTED PRN PFSH Active Problems Active Problems: Problem Status Onset Code Depressive disorder F32.9 Post-traumatic osteoarthritis of right knee M17.31 Chronic pruritic rash in adult L29.8 DARRYL (obstructive sleep apnea) G47.33 Chronic daily headache R51.9 Fatigue R53.83 Migraine headache with aura G43.109 Migraine headache without aura G43.009 Status migrainosus G43.901 Medical History Medical History Acquired hallux rigidus (10/15/13) left foot Bursitis of left shoulder Left rotator cuff tear Low back pain Lumbar disc herniation with radiculopathy Sciatica of right side (04/20/16) Tear of medial meniscus of right knee Tendinitis of long head of biceps brachii of left shoulder Surgical History Surgical History Gamekeeper's thumb of right hand History of arthroscopic knee surgery History of colonoscopy S/P ACL repair Status post hemorrhoidectomy Tobacco Smoking/Tobacco Use Status: Never Passive smoking exposure: Yes Second hand exposure: No Alcohol Alcohol Intake: current Alcohol intake frequency: a few times a month Alcohol type: wine Substance Use Substance use: Never Substance use type: does not use Vital Signs and Lab Results Vital Signs Most Recent Vital Signs in EMR: Most Recent Vital Signs Temp Pulse Resp BP Pulse Ox 36.1 C L 80 16 125/86 98 05/17/22 07:46 05/17/22 07:46 05/17/22 07:46 05/17/22 07:46 05/17/22 07:46 Lab Results Blood Type / Crossmatch: No Data to Display Complete Blood Count: White Blood Count 7.05 10^3/uL (4.4-10.8) 05/05/22 13:57 Red Blood Count 4.95 10^6/uL (4.36-5.78) 05/05/22 13:57 Hemoglobin 16.0 g/dL (13.5-17.5) 05/05/22 13:57 Hematocrit 48.0 % (40.0-50.0) 05/05/22 13:57 Platelet Count 170 10^3/uL (130-400) 05/05/22 13:57 Complete Metabolic Panel: Sodium 140 mmol/L (136-145) 05/05/22 13:57 Potassium 4.5 mmol/L (3.5-5.1) 05/05/22 13:57 Chloride 103 mmol/L (98-107) 05/05/22 13:57 Carbon Dioxide 28.2 mmol/L (21.0-32.0) 05/05/22 13:57 BUN 16 mg/dL (7-18) 05/05/22 13:57 Creatinine 1.1 mg/dL (0.70-1.30) 05/05/22 13:57 Est GFR (CKD-EPI 2020) 77.33 (mL/min/1.73m2) 05/05/22 13:57 Calcium 8.9 mg/dL (8.5-10.1) 05/05/22 13:57 Glucose 102 mg/dL (74-106) 05/05/22 13:57 Liver Function Panel: No Data to Display Coagulation Panel: No Data to Display Cardiac Panel: No Data to Display Arterial Blood Gas: No Data to Display Venous Blood Gas: No Data to Display Pancreas Panel: No Data to Display Thyroid Panel: No Data to Display Infectious Disease: No Data to Display Blood Cultures: No Data to Display Toxicology Panel: No Data to Display Anesthesia Assessment and Plan Anesthesia History Personal History: No History of Anesthesia Complications Family History: No Family History of Anesthesia Complications Exercise Tolerance Exercise Tolerance: Metabolic Equivalents>4 Pertinent Negatives Pertinent Negatives: No Symptoms of GERD, No Major Cardiovascular Symptoms or Complaints and No Major Pulmonary Symptoms or Complaints Cardiac & Pulmonary Exam Cardiac Exam: Normal S1/S2 Heart Sounds Pulmonary Exam: Clear Bilateral Breath Sounds Implantable Cardiac Device Does patient have a Pacemaker or an ICD?: No Airway Exam Known Difficult Airway: No Mallampati Class: 1 Mouth Opening: Normal (> 3cm) Thyromental Distance: Greater than 3 cm Neck Range of Motion: Full ROM Neck Circumference: Normal Teeth Condition: Normal Dentition ASA Classification ASA Score: ASA 2 Emergency Case?: No NPO Status NPO Status: NPO Clears >2 hours, Solids >8 hours Anesthesia Plan Resuscitation Status: Full Code Anesthesia Technique: Spinal Anesthesia Airway Planned: Natural Airway Pain Management: Surgeon and patient request nerve block Monitors Used: Standard Monitors
[2022-05-17] MEDS: Celecoxib 200 MG CAP 400 MG PO (08:08)
[2022-05-17] MEDS: Gabapentin 300 MG CAP PO (08:09)
[2022-05-17] MEDS: Acetaminophen 500 MG TAB 1000 MG PO (08:09)
[2022-05-17] MEDS: ceFAZolin 2 GM/50 ML BAG IVPB (09:37)
--- NOTE | 2022-05-17 09:59 | W.ANESNERVE ---
Nerve Block Single Injection Procedure Date and Time Date Performed: 05/17/22 Procedure Start: 09:13 Location Where Procedure Performed Procedure Location: Day Surgery Unit Reason Performed: Postoperative Analgesia Requesting Provider: Eduard Gary Timeout Performed Timeout Performed: Yes Monitoring Used ECG, Blood Pressure, SpO2, ETCO2 and See EMR for corresponding vital signs Sterility Sterility: Hand Hygiene, Surgical Cap, Surgical Mask, Sterile Gloves and Chlorhexidine Sedation Given During Procedure Sedation Given (Indicate Dose Given): No Sedation given Patient Mental Status Patient Mental Status: Awake Nerve Block 1st Nerve Block: Laterality: Right Block Type: Adductor Canal Needle / Catheter Used: 100mm SonoPlex II Local Anesthetic Bolus (Indicate Dose Given): Lidocaine used for local infiltration of skin, Injected in 3-5ml increments after negative blood aspiration and Bupivacaine 0.25% Dose:: 20ml Additives (Indicate Dose Given): None Ultrasound: Sterile probe cover and gel used Ultrasound Image Saved?: Yes Nerve Stimulator: Not Used Paresthesia: None Procedure Tolerated: No Complications and Patient tolerated well Procedure Outcome: Successful Procedure Comment: Mid procedure, pt. felt warm, looked presyncopal. Procedure finished and pt. improved over the next several minutes. Performed By: Bobby Rincon
--- NOTE | 2022-05-17 11:08 | ROE_ITS ---
Date of service: 05/17/22 Time of Service: 11:08 Operative Note Operative Note DATE OF PROCEDURE: 05/17/22 PRE-OP DIAGNOSIS: Right Knee Osteoarthritis POST-OP DIAGNOSIS: same PROCEDURE: Right Total Knee Replacement SURGEON: Eduard Gary CUSTOMER SERVICE MANAGER: Carmel Ahn ANESTHESIA TYPE: Spinal Refer to Anesthesia Record ESTIMATED BLOOD LOSS: 50 PATHOLOGY: none sent TOURNIQUET TIME: 0 COMPLICATIONS: None Patient was transported to: PACU Patient's condition: stable Implants: 1. Depuy Attune Cementless Cruciate Retaining Femoral Component, Size 8 2. Depuy Attune Cementless Fixed Bearing Tibial Component, Size 7 3. Depuy Attune 8x5mm CR/FB Poly 4. Depuy Attune Patellar Component, Size 38 Indications: I have seen Arya in clinic for symptoms of knee arthritis, confirmed with radiographic findings. She has exhausted nonoperative methods and was having significant limitations in daily function and desired better function and less pain. I discussed the technical details of a knee replacement. I explained the risks of the procedure to include, but not limited to, bleeding, infection, pain, stiffness, fracture, damage to nerves and vessels, damage to muscles and tendons, loosening, need for repeat procedure, blood clot and cardiopulmonary demise. Despite these risks, Arya elected to proceed. Findings: There was significant signs of arthritis throughout the knee, seen both medially and laterally. There was also a dense prepatellar bursitis with fluid and inflammation within the bursa which was resected. Procedure Description: Arya was greeted in the preoperative holding area where the correct side was identified and marked. The consent was reviewed with the patient and signed. The history and physical was updated. All questions were answered. Preoperative medications were administered: Acetaminophen 1000mg, Celebrex 400mg, and Gabapentin 300mg. An adductor canal block was then administered by the anesthesia team in the PACU. Arya was taken back to the operating room. A spinal anesthestic was then administered. The patient was placed into the supine position on the operating room table. A nonsterile tourniquet was placed high onto the leg but only used for cementing. Posts were placed for positioning during the procedure. All bony prominences were well padded. Prophylactic antibiotics in the form of Cefazolin were administered. 1g of Tranxemic Acid was given intravenously within 30 minutes of incision. The right leg was then prepped with Chloraprep and draped in a standard fashion with impervious stockinette. A second prep with Chloraprep was performed prior to application of Iodine impregnated skin protection. A timeout to confirm correct identity, side and site, procedure, allergies, anesthesia, and medical concerns was performed. With the knee in some flexion, a midline incision was made overlying the knee. Full thickness skin flaps were raised once the extensor mechanism was encountered. These were raised medially and laterally. Any bleeding was controlled with electrocautery. Once the extensor mechanism was fully exposed, a medial parapatellar arthrotomy was performed in a flexed position. All bleeding from the arthrotomy and the geniculate arteries was coagulated. A medial subperiosteal peel was performed with electrocautery to the midcoronal plane. The fat pad was removed while keeping the patellar tendon protected. The anterior distal femur synovium was removed for later visualization. The ACL and PCL were resected and the anterior horn of the lateral meniscus was transected. The knee was then flexed with the patella everted. Using a step drill, and based on preoperative templating, the femoral canal was entered. This was done with a step drill without any difficulty. The intramedullary distal femoral cut guide was inserted, set to a 7 degree valgus cut and 9mm cut thickness. The distal femoral cut guide was then held in position and pinned. With the soft tissues protected, the distal cut was performed. This was passed over a few times to ensure a planar cut. I then turned attention to the tibia. The extramedullary guide was placed onto the leg. The distal aspect was slid medial to adjust for position of center of ankle and stay in line with shaft of the tibia. Approximately 3-5 degrees of posterior slope was kept in the proximal cutting guide. The center of the guide was aligned with the PCL. The stylus was used to assess cut thickness. The medial side, most involved side, was set for a 4mm cut. This was then held in position and pinned into place with 2 additional pins and a cross pin for stability. The medial and lateral collateral ligaments were protected and the cut was performed. With this completed, it was assessed and noted to be of appropriate dimensions. The guide was removed. A spacer block was inserted and the knee was brought into extension. The 5mm spacer block provided full extension, without hyperextension and with stability of both the medial and lateral collateral ligaments was assessed. The pins from the femur and the tibia were then removed. The distal femur was then sized. The anterior stylus was placed onto the lateral ridge of the anterior femur. This indicated a size 8 femur. The external rotation of the guide was adjusted to 3 degrees to match the epicondylar axis, perpendicular to Vernon?s line. The 4-in-1 cutting guide was the placed. The posterior medial femur cut was evaluated and appeared of good thickness. The spacer block was inserted underneath the cutting guide and stability was confirmed in 90 degrees of flexion. An ana wing was used to confirm appropriate position of the anterior cut to avoid notching. This cutting guide was ensured to be flush on the cut surface and then pinned into place with headed pins. While protecting the soft tissues, quad tendon, and collateral ligaments, the anterior and posterior cuts were performed with a saw. The central two pins were removed and the posterior and anterior chamfers were cut next. The notch-cutting guide was placed. This was pinned to lateralize the femoral component as much as possible while keeping it flush on the cut surface. This was then pinned into position. A reciprocating saw was used to make the notch cut. A rasp smoothed the cut surfaces. The medial and lateral menisci were removed. A trial femoral component was then inserted, impacted down to the cut surfaces, and the lug holes were drilled. A provisional trial tibial component was placed and the knee was brought through range of motion. There was noted to be excellent extension and flexion. There was no significant instability. The patella was tracking without thumbs. A size 5mm polyethylene component provided the best range of motion and stability with less than 2mm gapping with medial and lateral stress and full extension without significant hyperextension. The tibial cut surface was fully exposed. The tibia was then sized as a 7. The tibia had been previously marked during trialing to correspond to the center of the tibial component to help with rotation. The trial was aligned to this arya, approximately rotated to the medial 1/3rd of the tibial tubercle. The trial was pinned into place. The tibia was prepared with a reamer and a keel punch and lug holes. The knee was then brought into extension and the patella was measured as 27mm. Using the patellar clamp and cut guide, this was resected to a flat surface with at least 13mm of thickness remaining. The size 38 patella fit the best. This was oriented and then clamped into position. The lugs were drilled. The trial components were removed. The final components were opened on the back table. The periosteal and capsular tissues, especially posteriorly, around the knee were then systematically injected with a periarticular cocktail consisting of 246mg of Ropivacaine, 0.5mg of Epinephrine, 0.08mg of Clonidine, and 30mg of Ketorolac, diluted to 100cc. On the back table, with the implants opened, the cement was mixed. One batch of high viscosity cement was prepared with vacuum assistance. After the cement was ready a small amount was placed on the cut surface of the patella and the patellar button was clamped into position and held. While the cement was hardening, the cementless knee components were placed. Starting with the tibial component, the tibia was subluxed anteriorly and the lug holes of the component were lined up. The tibia was then impacted with an impactor and mallet until the tibial component was in contact with the tibia. Then, the femoral component was inserted. The lug holes were aligned and the component was impacted into position. The final polyethylene component was inserted. The knee was irrigated with Surgiphor Betadine solution. This was allowed to sit in the knee for 3 minutes and then it was irrigated out with saline. After the cement had finally cured, approximately 15min, the clamp was removed from the patella and the knee was taken through range of motion. The patella was tracking with a no-thumbs technique. The capsule was then reapproximated with a No. 1 Vicryl at multiple locations. The capsule was finally closed with a No. 2 Stratafix, barbed suture. The second dosing of 1g TXA was started. Deep tissues were then reapproximated with 0 Vicryl and 2-0 Vicryl. The skin was closed with a running 3-0 Monocryl in a subcuticular fashion. This was reinforced with skin glue. A Mepilex silver dressing was applied along with a [id number] LUNA wrap. A CryoCuff was applied. Arya was transferred to the hospital bed without difficulty an suffering no apparent complication. He has a good prognosis. Physical therapy will start today and without restrictions, weight-bearing as tolerated. Aspirin 81mg BID will be used for DVT prophylaxis.
--- NOTE | 2022-05-17 13:15 | IN_ITS ---
Date of service: 05/17/22 Time of Service: 13:15 PT Notes Visit Reasons: Right knee DJD Physical Therapy Day Surgery Initial Evaluation Date: 05/17/2022 Referring Doctor: SABIHA Leyva PT Orders: PT CONSULT: S/P Ortho surgery Precautions: WBAT on R LE with AD. Patient Profile/Admitting Diagnosis: Benny is a 61-year-old male with post-traumatic osteoarthritis of the right knee and status post right total knee arthroplasty on postoperative day 0. PMHX: Medical History? Acquired hallux rigidus (10/15/13) left foot Bursitis of left shoulder Left rotator cuff tear Low back pain Lumbar disc herniation with radiculopathy Post-traumatic osteoarthritis of right knee Injection: 04/20/2021 Sciatica of right side (04/20/16) Tear of medial meniscus of right knee Tendinitis of long head of biceps brachii of left shoulder Surgical History? Gamekeeper's thumb of right hand S/P ACL repair S/P total knee arthroplasty Status post hemorrhoidectomy Social History/Home Situation: Lives with in a private home with2 steps to enter with no rails. Indepednent with all aspects of ADLs prior to surgery. Equipment Owned/DME: Bilateral axillary crutches Subjective: Reports 3-4/10 pain in the R calf area that subsided with ambulation actvity. Denies headache, chest pain and lightheadedness throughout sesison. Objective: General Observation: Supine in bed. LUNA wraps to R LE. Cryocuff to right knee. TEDS on the leg. Mental Status: Alert and oriented x 4 Pain: 3-4/1- in the R knee at rest ROM: Right Lower Extremity: Hip flexion WFL. Hip abduction WFL. Knee flexion WFL. Ankle dorsiflexion WFL. Ankle plantarflexion WFL. Left Lower Extremity: Hip flexion WFL. Hip abduction WFL. Knee flexion 0-100 degrees. Knmee extension 100-0 degree. Ankle dorsiflexion WFL. Ankle plantarflexion WFL. Strength: Right Lower Extremity: Hip flexors 5/5. Hip abductors 5/5. Knee flexors 5/5. Knee extensors 5/5. Ankle dorsiflexors 5/5. Ankle plantarflexors 5/5. Left Lower Extremity: Hip flexors 4/5. Hip abductors 4/5. Knee flexors 3-/5. Knee extensors 4-/5. Ankle dorsiflexors 5/5. Ankle plantarflexors 5/5. Sensation: Intact as to pain and light [ressure in B LE Bed Mobility/Transfers: Supine to sit standby assist Sit to stand standby assist Stand to sit standby assist Bed to chair standby assist Gait: 150 feet of level surface ambulation using front-wheeled walker with supervision. 80 feet using a R axillary crutches with standby assist using 3- point gait pattern. Step through gait pattern. No loss of balance. No shortness of breath. Stairs: Up and down 3 x4 in 2 x 6 inch steps using bilateral axillary crutches with step-to gait pattern. THERA EX: Straight leg raise x 10 Quads sets x 5 with 5sh Ankle pumps x 10 Heel slides x 10 LAQ x 5 with 5sh Balance: Static Sitting: Normal Dynamic Sitting: Normal Static Standing: Fair Dynamic Standing: Fair Special Tests: Mobility Limitations Standardized Measure [facility] 6 clicks Basic Mobility Inpatient Short Form: Raw Score: 23 CMS Score: 11% deficit Informed Consent/Education: Patient instructed in purpose of PT consult. Packet containing TKA exercise p rotocol has been given to patient. Education and training on initial set of exercises that can be done at home have been completed with patient. Assessment: Benny requires the use of bilateral axillary crutches fro all mobility ADL performance to maximize independence and reduce fall risk. Patient presents with clinical signs and symptoms consistent with current/admitting diagnoses that have resulted to mobility limitations, gait instability, generalized weakness, and impairment of motor control as demonstrated by the following impairment level findings: 1. Decreased strength to right knee major muscle groups 2. Impaired standing balance 3. Limitation of joint range of motion in left knee Impairments are contributing to the following functional limitations: 1. Inability to safely ambulate without assistive device 2. Increase completion time for mobility ADL performance 3. Increased fall risk Patient is assessed as a 49227 moderate complexity based on the following: History: 61-year-old male with impairment level findings, functional limitations, and past medical history as indicated above Examination: Demonstrable impairment in strength, balance, and mobility level with underlying impairments and functional limitations as documented above Presentation: Evolving Decision Makin moderate complexity Goals: N/A. PT evaluation and 1-2 treatment sessions only for functional mobility training using recommended AD and for HEP instruction. Plan of Care/Treatment Plan: N/A. PT evaluation and 1-2 treatment session only for functional mobility training using recommended AD and for HEP instruction. DISCHARGE RECOMMENDATIONS: [] Home with no services [] [] Home with services [specify] [X] Home with outpatient PT. Home when medically cleared by orthopedic surgeon. Recommend outpatient PT services in order to optimize functional mobility outcomes and facilitate independent community ambulation without an assistive device. [] SNF for continued rehabilitation [] [] Public Relations Studies Director Care [] [] SNF versus LTC based on ability to participate and progress [] TREATMENT CODE/TIME: 85110 x 20 minutes, 81795 x 13 minutes beginning at 13:15 PM. Thank you for the opportunity to participate in the care of this patient. Cecilia Darby PT, DPT, CLT [facility] [place], [place]
--- NOTE | 2022-05-17 14:20 | W.ANESPOSTOP ---
Postoperative Evaluation Date, Time and Location Date Performed: 05/17/22 Time Performed: 12:20 Patient Location: Day Surgery Unit Vital Signs Most Recent Imported Vital Signs: Most Recent Vital Signs Temp Pulse Resp BP Pulse Ox 36.2 C L 74 18 126/83 99 05/17/22 12:20 05/17/22 12:20 05/17/22 12:20 05/17/22 12:20 05/17/22 12:20 Pain Score Most Recent Pain Score: Most Recent Pain Score Pain Level 0 05/17/22 12:20 Assessment Mental Status: Awake (Alert & Oriented to Patient Baseline) Airway and Respiratory Function: Patent airway with normal (patient baseline) respiratory exam Cardiovascular Function: Hemodynamically Stable Hydration Status: Adequately Hydrated Nausea & Vomiting: No Nausea or Vomiting Pain: Pt. Denies Any Pain Peripheral Nerve Block: Regional nerve block not resolved at time of post operative discharge
== END 2022-05-17 14:38 | disposition home or self-care (01) ==
PROVIDERS: PCP Family Medicine; Visit Provider Student in an Organized Health Care Education/Training Program
PROC: (CPT 27447; principal; 2022-05-17 09:15)
DX: M17.31 Unilateral post-traumatic osteoarthritis, right knee (principal); G47.33 Obstructive sleep apnea (adult) (pediatric); F32.A Depression, unspecified
CPT/HCPCS: 27447; 20985; 97162; 97530; J0690; J1100; J2250; J2405

== ENCOUNTER → 2022-05-25 10:21 | Outpatient (CLI) | payer MEDICAID, SELFPAY ==
--- NOTE | 2022-05-25 09:45 | DI.US_ITS ---
Exam(s) US LOWER EXTREMITY VENOUS RT EXAM: US LOWER EXTREMITY VENOUS RT CLINICAL HISTORY: pain, swelling s/p Rt knee replacement, M79.604, Z96.651 TECHNIQUE: Right lower extremity venous ultrasound performed using grayscale, color-flow, and spectr al Doppler analysis. COMPARISON: No exams were available for comparison FINDINGS: The right common femoral, femoral and popliteal veins demonstrate normal compressibility, augmentatio n, and color Doppler. The posterior tibial veins are patent. The saphenofemoral junction is unremark able. There is no evidence of a Ying cyst. The soft tissues are unremarkable. IMPRESSION: No evidence of a right lower extremity DVT. DATA REPOSITORY:
== END ==
PROVIDERS: PCP Family Medicine; Visit Provider Physician Assistant
DX: M79.604 Pain in right leg (principal); M25.561 Pain in right knee; Z96.651 Presence of right artificial knee joint
CPT/HCPCS: 93971

== ENCOUNTER 2022-06-02 09:13 | Outpatient (CLI) | payer MEDICAID, SELFPAY ==
--- NOTE | 2022-06-02 08:45 | DI.RAD_ITS ---
Exam(s) XR STANDING ALIGNMENT EXAM: XR STANDING ALIGNMENT CLINICAL HISTORY: 1ST POST OP R TKA. TECHNIQUE: 2D digital imaging was performed. COMPARISON: CR XR STANDING ALIGNMENT from 09/27/2021 FINDINGS: 3 views There has been interval placement of a right knee prosthesis which appears satisfactory position alig nment and there is again noted evidence preceding ACL surgery in same-right Knee. Opposite-left knee appears unremarkable with no joint space narrowing. Hips appear unremarkab le as do ankles. Bone density normal. No osseous lesions. IMPRESSION: DATA REPOSITORY: RADIATION DOSE DELIVERED:
--- NOTE | 2022-06-02 08:45 | DI.RAD_ITS ---
Exam(s) XR KNEE RT 1V EXAM: XR KNEE RT 1V CLINICAL HISTORY: 1st post op R TKA. TECHNIQUE: 2D digital imaging was performed. COMPARISON: CR XR KNEE RT 4V AP,LAT,GREG,PAT from 06/30/2020 FINDINGS: Single lateral view: There has been interval placement a knee prosthesis. Position alignment prosthesis appear satisfacto ry. No fracture or loosening. There has also been patellar resurfacing. Evidence of proceeding ACL surgery noted. IMPRESSION: DATA REPOSITORY: RADIATION DOSE DELIVERED:
== END 2022-06-02 09:14 | disposition home or self-care (01) ==
LOC: DIORS 09:13
PROVIDERS: PCP Family Medicine; Referring Provider Family Medicine; Visit Provider Student in an Organized Health Care Education/Training Program
DX: Z96.651 Presence of right artificial knee joint (principal)
CPT/HCPCS: 73560; 77073

== ENCOUNTER 2022-08-01 19:58 | Outpatient (REF) | payer MEDICAID, SELFPAY ==
[2022-08-01 13:35] LABS: Abs Immature Grans 0.01 10^3/uL (0.0-0.06); Absolute Basophil Count 0.04 10^3/uL (0.0-0.2); Absolute Eosinophil Count 0.33 10^3/uL (0.0-0.7); Absolute Monocyte Count 0.57 10^3/uL (0.1-0.8); Absolute Neutrophil Count 3.12 10^3/uL (1.2-6.7); Basophils % 0.7; Eosinophils % 5.8; HCT 47.6 % (40.0-50.0); HGB 15.8 g/dL (13.5-17.5); Immature Grans % 0.2; Lymphocytes % 28.2; MCH 32.2 pg (27.0-33.0); MCHC 33.2 % (32.0-36.0); MCV 97 fL (80-95); MPV 10.5 fL (8.0-11.0); Monocytes % 10.1; Platelet Count 183 10^3/uL (130-400); RBC 4.91 10^6/uL (4.36-5.78); RDW 12.9 % (11.8-14.1); RDW-SD 46.5 fL; WBC 5.67 10^3/uL (4.4-10.8)
[2022-08-01 13:49] LABS: ALT 45 U/L (16-63); AST 23 U/L (15-37); Albumin 4.2 g/dL (3.4-5.0); Alkaline Phosphatase 72 U/L (46-116); Anion Gap 7.9 mmol/L (3-11); BUN 17 mg/dL (7-18); Bilirubin, Total 0.4 mg/dL (0.2-1.0); CO2 29.1 mmol/L (21.0-32.0); CREATININE 1.2 mg/dL (0.70-1.30); Calcium 8.9 mg/dL (8.5-10.1); Chloride 106 mmol/L (98-107); Estimated GFR 69.66 (mL/min/1.73m2); Glucose 85 mg/dL (74-106); Potassium 4.7 mmol/L (3.5-5.1); Sodium 143 mmol/L (136-145); Total Protein 6.9 g/dL (6.4-8.2)
== END 2022-08-01 19:59 | disposition home or self-care (01) ==
LOC: LBN 19:58
PROVIDERS: PCP Family Medicine; Visit Provider Nurse Practitioner Family
DX: R07.0 Pain in throat (principal)
CPT/HCPCS: 80053; 85025

== ENCOUNTER 2022-08-08 02:05 | Outpatient (CLI) | payer MEDICAID, SELFPAY ==
--- NOTE | 2022-08-08 06:45 | DI.US_ITS ---
Exam(s) US SOFT TISSUE HEAD OR NECK EXAM: US SOFT TISSUE HEAD OR NECK CLINICAL HISTORY: Right sided throat/lymph pain,R07.0. TECHNIQUE: Ultrasound was performed using standard protocol. COMPARISON: No exams were available for comparison FINDINGS: Sonographic assessment utilizing grayscale and color Doppler imaging was performed and targeted to th e area of clinical concern. Several lymph nodes are seen in the right neck in the area of concern. The largest measure 1.9 x 0.7 x 0.9 cm and 2 x 0.7 x 0.9 cm. The lymph nodes are unremarkable sonographically. Smaller lymph nod es are seen in the left side of the neck. IMPRESSION: No suspicious masses are seen in the neck. The area of palpable concern correspond to sonographicall y benign-appearing lymph nodes. DATA REPOSITORY:
== END 2022-08-08 02:25 ==
LOC: DI 02:05
PROVIDERS: PCP Family Medicine; Visit Provider Nurse Practitioner Family
DX: R07.0 Pain in throat (principal); R59.0 Localized enlarged lymph nodes
CPT/HCPCS: 76536

== ENCOUNTER 2022-08-11 11:16 | Outpatient (CLI) | payer MEDICAID, SELFPAY ==
--- NOTE | 2022-08-11 10:00 | DI.RAD_ITS ---
Exam(s) XR KNEE RT 2V AP,LAT EXAM: XR KNEE RT 2V AP,LAT INDICATION: Pain in R TKA. COMPARISON: CR XR KNEE RT 4V AP,LAT,GREG,PAT from 06/30/2020 CR XR KNEE RT 1V from 06/02/2022 TECHNIQUE: 2D digital imaging was performed. Two views. FINDINGS: There has been no change in the alignment of the total knee prosthesis. No abnormal bony lucencies. Amount of soft tissue swelling has decreased from the prior exam. DATA REPOSITORY: RADIATION DOSE DELIVERED:
[2022-08-11 13:52] LABS: Clarity Clear
[2022-08-11 13:53] LABS: Nucleated Cells 351 uL (0)
[2022-08-11 14:01] LABS: Mononuclear Cells 90 %; Polynuclear Cells 10 %
[2022-08-11 14:20] LABS: Path Consult (Tech Order) SEE COMMENTS
== END 2022-08-11 11:17 | disposition home or self-care (01) ==
LOC: DIORS 11:16
PROVIDERS: PCP Family Medicine; Referring Provider Family Medicine; Visit Provider Student in an Organized Health Care Education/Training Program
DX: Z96.651 Presence of right artificial knee joint (principal); M25.561 Pain in right knee; M25.661 Stiffness of right knee, not elsewhere classified
CPT/HCPCS: 73560; 87070; 87205; 89051

== ENCOUNTER 2022-08-23 11:42 | Day surgery (SDC) | payer MEDICAID, SELFPAY ==
[2022-08-23] VITALS (8 sets, daily range): BP systolic 126–180; BP diastolic 92–116; PULSE 70–81; RESP 12–16; TEMP 36.5–37.2; O2SAT 94–98; BMI 27.6
--- NOTE | 2022-08-23 09:12 | W.PM.DSUDISC ---
Date of service: 08/23/22 Time of Service: 09:18 Discharge Plan Disposition Patient Disposition: Home Condition: Good Discharge Details Reason For Visit: Arthrofibrosis of right TKA Attending Provider: Eduard Gary Primary Care Provider: Cadence Messina Home Meds and New Rx's Prescriptions: New acetaminophen 500 mg tablet 500 mg PO Q6H PRN (Reason: pain) Qty: 60 2RF ibuprofen 600 mg tablet 600 mg PO TID PRN (Reason: pain) Qty: 60 0RF oxycodone 5 mg tablet 5 - 10 mg PO Q4H PRNQty: 12 0RF Rx Instructions: Take one-two tablets up to every 4 hours as needed for severe postoperative pain Continued eszopiclone [Lunesta] 2 mg tablet 2 mg PO QHS MDD 2 mg PRN (Reason: insomnia) Qty: 30 1RF bupropion HCl [Wellbutrin XL] 150 mg tablet extended release 24 hr 150 mg PO QAM Qty: 14 0RF Rx Instructions: Take 1 tab, each morning x 14 days then STOP. fluoxetine 20 mg capsule 20 mg PO DAILY Qty: 30 1RF duloxetine 60 mg capsule,delayed release(DR/EC) 60 mg PO BID Qty: 60 1RF multivitamin [Daily Multi-Vitamin] 1 EACH tablet 1 ea PO DAILY Emgality Pen 120 mg/mL pen injector 120 mg subcut ONCE Qty: 1 11RF omeprazole 20 mg capsule,delayed release(DR/EC) 20 mg PO DAILY Qty: 60 6RF Nurtec ODT 75 mg tablet,disintegrating 75 mg PO ONCE PRN (Reason: migraine headache) Qty: 10 3RF Rx Instructions: As a single dose. No more than one dose in 24 hours. Discontinued acetaminophen 500 mg tablet 500 mg PO Q6H PRN (Reason: pain) Qty: 60 2RF Discharge Instructions Additional Instructions: Knee Manipulation Discharge Instructions Activity: You should begin moving as soon as possible. You may work on flexion but also equally maintain extension. You may bear weight as tolerated, using crutches only for support/comfort. You should apply ice to help with swelling and elevate when possible (especially in the first few days). Dressings: The knee dressing may come down after 48 hours. You may shower and get the wound wet at that time. You should keep the wounds covered with a bandaid until follow-up. Medications: - You have been prescribed a narcotic, Oxycodone, to take as needed for severe postoperative pain. - Recommend to take up to 1000mg of Acetaminophen (Tylenol) and 600mg of Ibuprofen (Advil) every 8 hours as needed. These larger strength tablets were called in but you also may use [id number]. Follow-up: 7-10 days Referrals: Eduard Gary MD [ [facility] STAFF PHYSICIAN] - Equipment/Supplies: Partial Weight Bearing Crutches Activity:: Elevate Remove Dressings/Wound Care:: 48 hours Shower/Bathe:: 48 hours Diet:: As Tolerated Discharge Orders Discharge Orders: Discharge Order (Routine); Ordered 08/23/22 Ordered By: Carmel Ahn DS: Diagnosis Discharge Diagnosis (1) Arthrofibrosis of total knee arthroplasty: Status: Acute (2) Synovitis of right knee: Status: Acute
[2022-08-23] MEDS: Gabapentin 300 MG CAP PO (12:34)
[2022-08-23] MEDS: Celecoxib 200 MG CAP 400 MG PO (12:34)
[2022-08-23] MEDS: Acetaminophen 500 MG TAB 1000 MG PO (12:35)
[2022-08-23] MEDS: Lactated Ringers 1,000 ML 80 ML IV (12:50)
--- NOTE | 2022-08-23 13:10 | ANES.PREOP_ITS ---
General Info Date of Service Date Performed: 08/23/22 Height: 6 ft Weight: 92.4 kg Body Mass Index (BMI): 27.6 Surgical Procedure: Operation Date: 08/23/22 14:25 Proposed Procedure Side Surgeon p Knee Arthroscopy Synovectomy Right Eduard Gary MD Meds Allergies and Home Medications Allergies Allergy/AdvReac Type Severity Reaction Status Date / Time prednisone AdvReac Intermediate anxiety Verified 08/22/22 13:47 escitalopram oxalate AdvReac Unknown AGITATION Verified 08/22/22 13:47 [From Lexapro] Home Medication Medication Instructions Recorded multivitamin (Daily Multi-Vitamin 1 ea PO DAILY 12/12/16 tablet) galcanezumab-gnlm 120 mg/mL 120 mg subcut ONCE #1 mL 05/09/22 subcutaneous pen injector (Emgality Pen) eszopiclone 2 mg tablet (Lunesta) 2 mg PO QHS PRN insomnia #30 tabs 05/19/22 omeprazole 20 mg capsule,delayed 20 mg PO DAILY #60 caps 05/31/22 release rimegepant 75 mg disintegrating 75 mg PO ONCE PRN migraine 07/12/22 tablet (Nurtec ODT) headache #10 tabs bupropion HCl 150 mg 24 hr tablet, 150 mg PO QAM #14 tabs 08/15/22 extended release (Wellbutrin XL) duloxetine 60 mg capsule,delayed 60 mg PO BID #60 caps 08/15/22 release fluoxetine 20 mg capsule 20 mg PO DAILY #30 caps 08/15/22 acetaminophen 500 mg tablet 500 mg PO Q6H PRN pain #60 tabs 08/23/22 ibuprofen 600 mg tablet 600 mg PO TID PRN pain #60 tabs 08/23/22 oxycodone 5 mg tablet 5 - 10 mg PO Q4H PRN #12 tabs 08/23/22 Current Visit Medications: Current Medications Generic Name Dose Route Start Last Admin Trade Name Freq PRN Reason Stop Dose Admin Acetaminophen 1,000 mg 08/23/22 06:00 08/23/22 12:35 Acetaminophen 500 Mg Tab PO 08/23/22 16:00 1,000 mg PREOP ETHAN Administration Acetaminophen 650 mg 08/23/22 09:11 Acetaminophen 325 Mg Tab PO Q4H PRN PRN Hydrocodone Bitart/Acetaminophen 0 tab 03/28/23 09:11 Hydrocodone 5/Acetaminophen 325 Tab PO Q3H PRN PRN Pain Celecoxib 400 mg 08/23/22 06:00 08/23/22 12:34 Celecoxib 200 Mg Cap PO 08/23/22 16:00 400 mg PREOP ETHAN Administration Gabapentin 300 mg 08/23/22 06:00 08/23/22 12:34 Gabapentin 300 Mg Cap PO 08/23/22 16:00 300 mg PREOP ETHAN Administration Ringer's Solution 1,000 mls @ 80 mls/hr 08/23/22 06:00 08/23/22 12:50 IV 09/21/22 23:59 80 mls/hr INFUSION ETHAN Administration Cefazolin Sodium/Dextrose 2 gm in 50 mls @ 100 mls/hr 08/23/22 06:00 Ancef Duplex IVPB 09/21/22 23:59 PREOP ETHAN IV Miscellaneous Supplies 1 each 08/23/22 06:00 Iv Access IV 09/21/22 23:59 DIRECTED ETHAN Sodium Chloride 0 ml 08/23/22 06:00 Normal Saline Flush 10 Ml Syr IV 09/21/22 23:59 PRN PRN Sodium Chloride 0 ml 08/23/22 06:00 Normal Saline 10 Ml Vial IJ 09/21/22 23:59 DIRECTED PRN Sterile Water 0 ml 08/23/22 06:00 Water,Injection,Sterile 10 Ml Vial IJ 09/21/22 23:59 DIRECTED PRN PFSH Active Problems Active Problems: Problem Status Onset Code Synovitis of right knee M65.9 Arthrofibrosis of total knee arthroplasty T84.82XA Pain in throat R07.0 Depressive disorder F32.9 Chronic pruritic rash in adult L29.8 DARRYL (obstructive sleep apnea) G47.33 Chronic daily headache R51.9 Fatigue R53.83 Migraine headache with aura G43.109 Migraine headache without aura G43.009 Status migrainosus G43.901 Major depressive disorder F32.9 Status post total right knee replacement 05/17/22 Z96.651 Medical History Medical History Acquired hallux rigidus (10/15/13) left foot Bursitis of left shoulder Left rotator cuff tear Low back pain Lumbar disc herniation with radiculopathy Sciatica of right side (04/20/16) Tear of medial meniscus of right knee Tendinitis of long head of biceps brachii of left shoulder Surgical History Surgical History Gamekeeper's thumb of right hand History of arthroscopic knee surgery History of colonoscopy S/P ACL repair Status post hemorrhoidectomy Tobacco Smoking/Tobacco Use Status: Never Passive smoking exposure: Yes Second hand exposure: No Alcohol Alcohol Intake: current Alcohol intake frequency: a few times a month Alcohol type: wine Substance Use Substance use: Never Substance use type: does not use Vital Signs and Lab Results Vital Signs Most Recent Vital Signs in EMR: Most Recent Vital Signs Temp Pulse Resp BP Pulse Ox 37.1 C 75 16 126/92 H 98 08/23/22 12:26 08/23/22 12:26 08/23/22 12:26 08/23/22 12:26 08/23/22 12:26 Lab Results Blood Type / Crossmatch: No Data to Display Complete Blood Count: White Blood Count 5.67 10^3/uL (4.4-10.8) 08/01/22 09:27 Red Blood Count 4.91 10^6/uL (4.36-5.78) 08/01/22 09:27 Hemoglobin 15.8 g/dL (13.5-17.5) 08/01/22 09:27 Hematocrit 47.6 % (40.0-50.0) 08/01/22 09:27 Platelet Count 183 10^3/uL (130-400) 08/01/22 09:27 Complete Metabolic Panel: Sodium 143 mmol/L (136-145) 08/01/22 09:27 Potassium 4.7 mmol/L (3.5-5.1) 08/01/22 09:27 Chloride 106 mmol/L (98-107) 08/01/22 09:27 Carbon Dioxide 29.1 mmol/L (21.0-32.0) 08/01/22 09:27 BUN 17 mg/dL (7-18) 08/01/22 09:27 Creatinine 1.2 mg/dL (0.70-1.30) 08/01/22 09:27 Est GFR (CKD-EPI 2020) 69.66 (mL/min/1.73m2) 08/01/22 09:27 Calcium 8.9 mg/dL (8.5-10.1) 08/01/22 09:27 Albumin 4.2 g/dL (3.4-5.0) 08/01/22 09:27 Glucose 85 mg/dL (74-106) 08/01/22 09:27 Liver Function Panel: Alanine Aminotransferase (ALT/SGPT) 45 U/L (16-63) 08/01/22 09: 27 Aspartate Amino Transf (AST/SGOT) 23 U/L (15-37) 08/01/22 09:27 Coagulation Panel: No Data to Display Cardiac Panel: No Data to Display Arterial Blood Gas: No Data to Display Venous Blood Gas: No Data to Display Pancreas Panel: No Data to Display Thyroid Panel: No Data to Display Infectious Disease: No Data to Display Blood Cultures: No Data to Display Toxicology Panel: No Data to Display Anesthesia Assessment and Plan Anesthesia History Personal History: No History of Anesthesia Complications Family History: No Family History of Anesthesia Complications Exercise Tolerance Exercise Tolerance: Metabolic Equivalents>4 Pertinent Negatives Pertinent Negatives: No Symptoms of GERD, No Major Cardiovascular Symptoms or Complaints and No Major Pulmonary Symptoms or Complaints Cardiac & Pulmonary Exam Cardiac Exam: Normal S1/S2 Heart Sounds Pulmonary Exam: Clear Bilateral Breath Sounds Implantable Cardiac Device Does patient have a Pacemaker or an ICD?: No Airway Exam Known Difficult Airway: No Mallampati Class: 1 Mouth Opening: Normal (> 3cm) Thyromental Distance: Greater than 3 cm Neck Range of Motion: Full ROM Neck Circumference: Normal Teeth Condition: Normal Dentition ASA Classification ASA Score: ASA 2 Emergency Case?: No NPO Status NPO Status: NPO Clears >2 hours, Solids >8 hours Anesthesia Plan Resuscitation Status: Full Code Anesthesia Technique: General Anesthesia Airway Planned: LMA Monitors Used: Standard Monitors
[2022-08-23] MEDS: ceFAZolin 2 GM/50 ML BAG IVPB (14:10)
[2022-08-23] MEDS: Bupivacaine 0.5% Pres-Free 30 ML VIAL (14:53)
[2022-08-23] MEDS: EPINEPHrine 30 MG/30 ML VIAL (14:54)
--- NOTE | 2022-08-23 15:54 | W.ANESPOSTOP ---
Postoperative Evaluation Date, Time and Location Date Performed: 08/23/22 Time Performed: 15:54 Patient Location: Day Surgery Unit Vital Signs Most Recent Imported Vital Signs: Most Recent Vital Signs Temp Pulse Resp BP Pulse Ox 36.9 C 72 16 141/104 H 95 08/23/22 15:42 08/23/22 15:42 08/23/22 15:42 08/23/22 15:42 08/23/22 15:42 Pain Score Most Recent Pain Score: Most Recent Pain Score Pain Level 3 08/23/22 15:42 Assessment Mental Status: Awake (Alert & Oriented to Patient Baseline) Airway and Respiratory Function: Patent airway with normal (patient baseline) respiratory exam Cardiovascular Function: Hemodynamically Stable Hydration Status: Adequately Hydrated Nausea & Vomiting: No Nausea or Vomiting Pain: Pain is tolerable per patient Peripheral Nerve Block: Patient did not receive a nerve block
[2022-08-23] MEDS: HYDROcodone 5/Acetaminophen 325 TAB PO (16:05)
--- NOTE | 2022-08-23 16:15 | ROE_ITS ---
Date of service: 08/23/22 Time of Service: 15:00 Operative Note Operative Note DATE OF PROCEDURE: 08/23/22 PRE-OP DIAGNOSIS: Right Knee Synovitis, Painful Knee Replacement POST-OP DIAGNOSIS: same (Right Knee Synovitis) PROCEDURE: Arthroscopic Synovectomy of 3 Compartments - RIGHT Knee SURGEON: Eduard Gary ANESTHESIA TYPE: General LMA/ETT Refer to Anesthesia Record ESTIMATED BLOOD LOSS: 50 PATHOLOGY: none sent COMPLICATIONS: None Patient was transported to: PACU Patient's condition: stable Indications: I have seen Benny in clinic for symptoms of pain and swelling and some restricted motion of the right knee following knee replacement surgery. Nonoperative measures were exhausted but disability due to lack of motion persisted. I di scussed knee arthroscopy with synovectomy with maniuplation with the patient. I reviewed the risks of the procedure to include, but not limited to, bleeding, infection, pain, continued stiffness, recurrence, blood clot. Despite these risks, the patient elected to proceed. Findings: Inflammatory changes were seen throughout the majority of the knee with dense scar and adhesions. There was frayed tissue seen in the anterior portion of the knee as well as synovitis around the gutters. A 3 department synovectomy was performed releasing the dense adhesions and removing the inflamed synovium. Procedure Description: Benny was greeted in the preoperative holding area where the correct side was lulu ntified and marked. The consent was reviewed with the patient and signed. The history and physical was updated. All questions were answered. He was taken back to the operating room. The patient was placed into the supine position on the operating room table. All bony prominences were well padded. Prophylactic antibiotics in the form of Cefazolin were administered. The right leg was then prepped with Chloraprep and draped in a standard fashion with stockinette and extremity drape. A timeout to confirm correct identity, side and site, procedure, allergies, anesthesia, and medical concerns was performed. The leg was placed into a pneumatic leg salgado, [id number]. A standard lateral portal was made at the lateral border of the patella tendon in line with the inferior pole of the patella, soft spot. The skin and deep tissue was incised sharply and the blunt trochar was inserted atraumatically. At this point had visualization of the femoral component. A superolateral portal was then established with spinal needle localization just superior and lateral to the patella. A knife was taken down through the skin and soft tissue to enter the knee joint. There is notable inflammatory changes of the synovium throughout the knee with dense adhesions seen throughout as well. Starting in the superior compartment above the femoral component and anterior to the femur I released all scarring between the anterior femoral synovium and the overlying extensor mechanism. This was taken through all of any noticeable scar tissue until the superior patellar pouch was fully released and mobile. This resection was carried out mostly with electrocautery as well as shaver. Once this was released fully from lateral to medial superiorly I then continue working down the lateral gutter. All scar tissue in the lateral gutter was released so there is normal space and movement between the capsular tissues and the edge of the femoral component and femur. There was synovitis seen within this gutter. This was taken down through the lateral gutter such that I was able to identify the polyethylene to its posterior corner. Once again, all scar tissue in this area was resected so the polyethylene was easily visible and there is no interposed tissue in the back or the polyethylene was identified. I think continue to work anteriorly. To continue the synovectomy from the lateral compartment to the anterior compartment into the medial compartment, I placed a medial portal under spinal needle localization. Once this was in place it became another working portal and I continued the synovectomy through the anterior compartment to the medial compartment. Once again, I freed up the medial gutter so I was able to visualize the polyethylene from the anterior posterior margins. Likewise, there was notable synovitis in this region with friable tissue. There is no interposed tissue after full synovectomy was performed. Adhesions between the capsule and the femur were released. This was continued up the medial gutter until it met up with the releases performed previously in the superior compartment. Any remnant scar tissue from around the patella was then removed with a shaver and electrocautery. The arthroscope was brought back into the suprapatellar pouch and the leg was in full extension. The knee was thoroughly irrigated with the arthroscopic fluid on high flow and pressure. Inflow was stopped and excess fluid was removed. The wounds were closed with 4-0 Nylon. 0.25% ropivacaine was injected around the portal sites and into the knee. The wounds were dressed with Xeroform, 4x4 gauze, ABD pad, Kerlix and an LUNA wrap. A cryo-cuff was applied. The patient tolerated the procedure well and was returned to the Same Day Surgery area in a stable condition suffering no known complication..
== END 2022-08-23 16:29 | disposition home or self-care (01) ==
PROVIDERS: PCP Family Medicine; Visit Provider Student in an Organized Health Care Education/Training Program
PROC: (CPT 29870; principal; 2022-08-23 14:15)
DX: T84.82XA Fibrosis due to internal orthopedic prosthetic devices, implants and grafts, initial encounter (principal); M65.861 Other synovitis and tenosynovitis, right lower leg
CPT/HCPCS: 29876; J0690; J1100; J2405; J2704

== ENCOUNTER 2023-05-17 09:10 | Day surgery (SDC) | payer MEDICAID, SELFPAY ==
[2023-05-17] VITALS (13 sets, daily range): BP systolic 110–144; BP diastolic 63–86; PULSE 63–79; RESP 12–17; TEMP 36.1–37; O2SAT 95–100; BMI 26.7
--- NOTE | 2023-05-17 09:43 | W.PM.DSUDISC ---
Date of service: 05/17/23 Time of Service: 09:43 Discharge Plan Disposition Patient Disposition: Home Condition: Good Discharge Details Reason For Visit: Open synovectomy R knee Attending Provider: Eduard Gary Primary Care Provider: Cadence Messina Home Meds and New Rx's Prescriptions: New acetaminophen 500 mg tablet 1,000 mg PO TID Qty: 90 3RF aspirin 81 mg tablet,delayed release (DR/EC) 81 mg PO BID Qty: 60 0RF celecoxib 200 mg capsule 200 mg PO BID Qty: 60 0RF gabapentin 300 mg capsule 300 mg PO QHS Qty: 14 0RF oxycodone 5 mg tablet 5 mg PO Q4H MDD 6 tabs PRN (Reason: pain) Qty: 20 0RF Continued Aimovig Autoinjector 140 mg/mL auto-injector 140 mg subcut QMONTH Qty: 1 12RF eszopiclone [Lunesta] 2 mg tablet 2 mg PO QHS MDD 2 mg PRN (Reason: insomnia) Qty: 30 1RF multivitamin [Daily Multi-Vitamin] 1 EACH tablet 1 ea PO DAILY omeprazole 20 mg capsule,delayed release(DR/EC) 20 mg PO DAILY Qty: 60 6RF Ubrelvy 100 mg tablet See Rx Instructions .ROUTE .COMPLEX Qty: 14 3RF Dose Instruction: TAKE ONE TABLET BY MOUTH A SINGLE DOSE, MAY REPEAT ONCE IN >=2 HOURS AFTER FIRST DOSE IF NEEDED Rx Instructions: TAKE ONE TABLET BY MOUTH A SINGLE DOSE, MAY REPEAT ONCE IN >=2 HOURS AFTER FIRST DOSE IF NEEDED Discontinued acetaminophen 500 mg tablet 500 mg PO Q6H PRN (Reason: pain) Qty: 60 2RF ibuprofen 600 mg tablet 600 mg PO TID PRN (Reason: pain) Qty: 60 0RF Discharge Instructions Additional Instructions: Open Synovectomy Knee Discharge Instructions Activity: The most important activity is to walk and to work on gentle motion (both flexion and extension). You should try to take short walks a few times a day. It is important that when resting you work on keeping the knee straight. Avoid putting a pillow behind the knee as this will encourage flexion. Work on range of motion exercises as provided by Physical Therapy. - Start outpatient physical therapy within 2 weeks. - You should wear the KEVIN hose on both legs for 2 weeks. You may remove these at night. You may also use any compression sock in place of the KEVIN hose. - Utilize [employer] to review exercises, see videos on exercises and obtain basic information pertaining to your surgery and your recovery. Dressing: Remove the Javier wrap by 2 days after your surgery and put on the KEVIN stocking given to you from the hospital. Keep the surgical dressing (underneath the JAVIER wrap) in place for at least one week. After the first week it may be removed and replaced with light gauze and tape or nothing. The wound and dressing may get wet after 3 days but avoid soaking the dressing or otherwise it will need to be changed. Many people prefer covering the dressing with cling wrap (saran wrap) to minimize it from getting soaked. If it gets wet, just pat dry. If it starts to peel off then it will need to be changed. Medications: - You should take Tylenol and anti-inflammatory Celebrex as your primary pain control medications. If the Celebrex is too expensive or not covered, please call the office for another alternative (Advil/Ibuprofen or Naproxen/Aleve) - You have been prescribed a stronger pain medication Oxycodone for breakthrough pain, take as needed as prescribed. - You will continue your stomach acid reduction agent omeprazole to help reduce stomach acid and reflux. - You have been prescribed Gabapentin to take at night for restlessness and nerve pain. - You will be taking Aspirin 81mg twice a day for DVT prevention unless instructed otherwise. - If you have constipation you should take Colace or Miralax (both [id number]-igl-[id number]). It takes most people 3-4 days to have a bowel movement. Follow-up: 2 weeks If you have any acute concerns or questions, please do not hesitate to contact the office at [phone]. You may contact Dr. Gary with any questions after hours through the hospital at [phone] or on his cell phone at [phone]. Stand Alone Forms: Anesthesia Discharge InstJose, [facility].Nerve Block Instructions, [facility] Knee Arthroscopy, Barbara Talley ([facility]) Referrals: Eduard Gary MD [ [facility] STAFF PHYSICIAN] - Equipment/Supplies: Walker Activity:: Activity as Tolerated Shower/Bathe:: 72 hours Diet:: As Tolerated Discharge Orders Discharge Orders: Discharge Order (Routine); Ordered 05/17/23 Ordered By: Eduard Gary DS: Diagnosis Discharge Diagnosis (1) Painful total knee replacement, right: Status: Acute
--- NOTE | 2023-05-17 09:56 | ANES.PREOP_ITS ---
General Info Date of Service Date Performed: 05/17/23 Height: 6 ft Weight: 89.358 kg Body Mass Index (BMI): 26.7 Surgical Procedure: Operation Date: 05/17/23 12:10 Proposed Procedure Side Surgeon p Knee Open Synovectomy Right Eduard Gary MD Meds Allergies and Home Medications Allergies Allergy/AdvReac Type Severity Reaction Status Date / Time prednisone AdvReac Intermediate anxiety Verified 05/17/23 09:53 escitalopram oxalate AdvReac Unknown AGITATION Verified 05/17/23 09:53 [From Lexapro] Home Medication Medication Instructions Recorded multivitamin (Daily Multi-Vitamin 1 ea PO DAILY 12/12/16 tablet) eszopiclone 2 mg tablet (Lunesta) 2 mg PO QHS PRN insomnia #30 tabs 05/19/22 omeprazole 20 mg capsule,delayed 20 mg PO DAILY #60 caps 05/31/22 release ubrogepant 100 mg tablet (Ubrelvy) See Rx Instructions .Route 02/07/23 .COMPLEX #14 tabs erenumab-aooe 140 mg/mL 140 mg subcut QMONTH #1 mL 03/01/23 subcutaneous auto-injector (Aimovig Autoinjector) acetaminophen 500 mg tablet 1,000 mg (2 x 500 mg) PO TID #90 05/17/23 tabs aspirin 81 mg tablet,delayed 81 mg PO BID #60 tabs 05/17/23 release celecoxib 200 mg capsule 200 mg PO BID #60 caps 05/17/23 gabapentin 300 mg capsule 300 mg PO QHS #14 caps 05/17/23 oxycodone 5 mg tablet 5 mg PO Q4H PRN pain #20 tabs 05/17/23 Current Visit Medications: Current Medications Generic Name Dose Route Start Last Admin Trade Name Freq PRN Reason Stop Dose Admin Acetaminophen 1,000 mg 05/17/23 06:00 Acetaminophen 500 Mg Tab PO 05/17/23 18:00 PREOP ETHAN Acetaminophen 1,000 mg 05/17/23 09:38 Acetaminophen 500 Mg Tab PO 06/16/23 09:37 TID PRN PRN Analgesia Celecoxib 400 mg 05/17/23 06:00 Celecoxib 200 Mg Cap PO 05/17/23 18:00 PREOP ETHAN Docusate Sodium 100 mg 05/17/23 09:38 Docusate Sodium 100 Mg Cap PO 06/16/23 09:37 BID PRN PRN Constipation Gabapentin 300 mg 05/17/23 06:00 Gabapentin 300 Mg Cap PO 05/17/23 18:00 PREOP ETHAN Tranexamic Acid 1,000 mg/ 60 mls @ 360 mls/hr 05/17/23 06:00 Sodium Chloride IVPB 05/17/23 18:00 PREOP ETHAN Ringer's Solution 1,000 mls @ 80 mls/hr 05/17/23 06:00 IV 05/17/23 23:59 INFUSION ETHAN Cefazolin Sodium/Dextrose 2 gm in 50 mls @ 100 mls/hr 05/17/23 06:00 Ancef Duplex IVPB 05/17/23 23:59 PREOP ETHAN IV Miscellaneous Supplies 1 each 05/17/23 06:00 Iv Access IV 05/17/23 23:59 DIRECTED ETHAN Ondansetron HCl 4 mg 05/17/23 09:38 Ondansetron 4 Mg/2 Ml Vial IVP 06/16/23 09:37 Q6H PRN PRN Nausea Oxycodone HCl 0 mg 05/17/23 09:38 Oxycodone 5 Mg Tab PO 06/16/23 09:37 Q3H PRN PRN Pain Polyethylene Glycol 17 gm 05/17/23 09:38 Polyethylene Glycol 3350 17 Gm Packet PO 06/16/23 09:37 BID PRN PRN Constipation Sodium Chloride 0 ml 05/17/23 06:00 Normal Saline Flush 10 Ml Syr IV 05/17/23 23:59 PRN PRN Sodium Chloride 0 ml 05/17/23 06:00 Normal Saline 10 Ml Vial IJ 05/17/23 23:59 DIRECTED PRN Sterile Water 0 ml 05/17/23 06:00 Water,Injection,Sterile 10 Ml Vial IJ 05/17/23 23:59 DIRECTED PRN PFSH Active Problems Active Problems: Problem Status Onset Code Migraine G43.909 Painful total knee replacement, right T84.84XA, Z96.651 Depression F32.A 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 Psychological and behavioral factors associated with disorders or diseases classified elsewhere F54 Chronic pain G89.29 Arthrofibrosis of total knee arthroplasty T84.82XA Pain in throat R07.0 Major depressive disorder F32.9 Status migrainosus G43.901 Migraine headache without aura G43.009 Migraine headache with aura G43.109 Fatigue R53.83 Chronic daily headache R51.9 DARRYL (obstructive sleep apnea) G47.33 Chronic pruritic rash in adult L29.8 Medical History Medical History Acquired hallux rigidus (10/15/13) left foot Bursitis of left shoulder Left rotator cuff tear Low back pain Lumbar disc herniation with radiculopathy Sciatica of right side (04/20/16) Synovitis of right knee Tear of medial meniscus of right knee Tendinitis of long head of biceps brachii of left shoulder Surgical History Surgical History Gamekeeper's thumb of right hand H/O synovectomy (~07/2022) History of arthroscopic knee surgery History of colonoscopy S/P ACL repair Status post hemorrhoidectomy Status post total right knee replacement (05/17/22) Tobacco Smoking/Tobacco Use Status: Never Passive smoking exposure: Yes (father smoked) Second hand exposure: Yes Alcohol Alcohol Intake: current Alcohol intake frequency: a few times a month Alcohol type: wine Substance Use Substance use: Never Substance use type: does not use Vital Signs and Lab Results Vital Signs Most Recent Vital Signs in EMR: Temp Pulse Resp BP Pulse Ox 36.1 C L 74 16 144/81 H 99 05/17/23 09:56 05/17/23 09:56 05/17/23 09:56 05/17/23 09:56 05/17/23 09:56 Lab Results Blood Type / Crossmatch: No Data to Display Complete Blood Count: No Data to Display Complete Metabolic Panel: No Data to Display Liver Function Panel: No Data to Display Coagulation Panel: No Data to Display Cardiac Panel: No Data to Display Arterial Blood Gas: No Data to Display Venous Blood Gas: No Data to Display Pancreas Panel: No Data to Display Thyroid Panel: No Data to Display Infectious Disease: No Data to Display Blood Cultures: No Data to Display Toxicology Panel: No Data to Display Anesthesia Assessment and Plan Anesthesia History Personal History: No History of Anesthesia Complications Family History: No Family History of Anesthesia Complications Exercise Tolerance Exercise Tolerance: Metabolic Equivalents>4 Cardiac & Pulmonary Exam Cardiac Exam: Normal S1/S2 Heart Sounds Pulmonary Exam: Clear Bilateral Breath Sounds Implantable Cardiac Device Does patient have a Pacemaker or an ICD?: No Airway Exam Known Difficult Airway: No Mallampati Class: 1 Mouth Opening: Normal (> 3cm) Thyromental Distance: Greater than 3 cm Neck Range of Motion: Full ROM Neck Circumference: Normal Teeth Condition: Normal Dentition ASA Classification ASA Score: ASA 2 Emergency Case?: No NPO Status NPO Status: NPO Clears >2 hours, Solids >8 hours Anesthesia Plan Resuscitation Status: Full Code Anesthesia Technique: General Anesthesia (not interested in spinal. ) Airway Planned: LMA Pain Management: Surgeon and patient request nerve block Monitors Used: Standard Monitors Preoperative Comments:: 62 yo male for open synovectomy. Sig PMHx: GERD, chronic pain, DARRYL (no CPAP), migraine, depression. Previous Anes: - knee arthroscopy, LMA 4 - TKA, chloro spinal, prop sedation. adductor with 20 mL 0.25% - did get pre- syncopal, no sedation for block. - knee scope, igel 4.
--- NOTE | 2023-05-17 09:59 | W.PREOPHP ---
Assessment and Plan Assessment and plan (1) Arthrofibrosis of total knee arthroplasty: Status: Acute Assessment and plan: Benny is a 62-year-old active male who unfortunately had pain and stiffness about his right knee after knee replacement. He did have some improvement with the arthroscopic synovectomy but continues to have some symptoms after recurrence and return of the stiffness along with some clicking, crunching, and crepitus. Given this scenario, I did offer an open synovectomy. I was very honest with Benny that it may not overall help his symptoms although it seems like this is a soft tissue problem. He is signed up for physical therapy does go to be diligent with physical therapy and decrease some of his activity following this procedure. I also reviewed potential risks include bleeding, infection, pain, stiffness, recurrence, damage to nerves and vessels, damage to muscle and tendons, skin healing difficulties, blood clot. Despite these risk, he elects to proceed. History of Present Illness History of Present Illness Chief Complaint: Right knee stiffness and pain Narrative: Benny is a 62-year-old who is status post right knee replacement. Unfortunately he is struggled with pain initially and then the stiffness. He did respond well to the arthroscopic synovectomy. However, his symptoms and stiffness returned. He has been diligent with physical therapy and has tried to improve the symptoms. He does feel something is stuck within the knee. Therefore, I have offered an open synovectomy. He is here today for the procedure. He denies chest pain or shortness of breath. He denies new illness. Review of Systems All systems reviewed & are unremarkable except as noted in HPI and below PFSH All Active Problems Migraine (Chronic) Painful total knee replacement, right (Acute) Depression (Chronic) Pain disorder associated with psychological factors and medical condition (Acute) Psychological and behavioral factors associated with disorders or diseases classified elsewhere (Acute) Chronic pain (Chronic) Arthrofibrosis of total knee arthroplasty (Acute) Right Arthroscopic synovectomy: 08/23/2022 Pain in throat (Acute) Major depressive disorder (Chronic) Status migrainosus (Chronic) Migraine headache without aura (Chronic) Migraine headache with aura (Chronic) Fatigue (Chronic) Chronic daily headache (Chronic) DARRYL (obstructive sleep apnea) (Chronic) mild when supine, moderate during REM sleep. unable to tolerate CPAP. Chronic pruritic rash in adult (Chronic) reaction to sun exposure Medical History Synovitis of right knee Lumbar disc herniation with radiculopathy Low back pain Tear of medial meniscus of right knee Left rotator cuff tear Bursitis of left shoulder Tendinitis of long head of biceps brachii of left shoulder Sciatica of right side (04/20/16) Acquired hallux rigidus (10/15/13) left foot Surgical History H/O synovectomy (~07/2022) Status post total right knee replacement (05/17/22) History of colonoscopy History of arthroscopic knee surgery Gamekeeper's thumb of right hand S/P ACL repair Status post hemorrhoidectomy Family History Mother No problems noted. Father Prostate cancer Sister No problems noted. Brother No problems noted. Maternal Grandfather , AGE 56 PNEUMONIA No problems noted. Paternal Grandfather , AGE 76 Alzheimer disease Maternal Grandmother , age 93 No problems noted. Paternal Grandmother , age 80 Diabetes Depression Son No problems noted. Daughter No problems noted. Social History Smoking/Tobacco Use Status: Never Second Hand Exposure: Yes Smoking risk assessment performed?: Yes Alcohol Intake: current Alcohol Intake frequency: a few times a month Alcohol type: wine Drug use: Never Substance use type: does not use Caregiver/Support person: No Household members: spouse Housing: house Communication Needs: None Do you need help understanding health information?: Never current occupation: [employer] Pets and animals: Yes Pets and animals: cat(s) Sexually active: No Do you think of yourself as: straight/heterosexual Current gender identity: male What is your relationship status?: How often do you talk on the phone with friends or family?: twice per week How often do you get together with friends or relatives?: once per week How often do you attend zoroastrianism or faith services?: decline to answer Do you belong to any clubs or organized social groups?: yes Panel score (0-1 are the most socially isolated patients): 3 What type of physical activity do you participate in: walking Duration: > 90 minutes/day Frequency: daily Mindi/Oriental Orthodox: No preference Special mindi needs: No Seatbelt use: always Helmet use: Yes Helmet use: always Drive intox or ride w/intox home delivery driver: No Do you feel safe at home: Yes Do you feel safe in your relationship?: Yes Meds Allergies and Home Medications Allergies Allergy/AdvReac Type Severity Reaction Status Date / Time prednisone AdvReac Intermediate anxiety Verified 05/17/23 09:53 escitalopram oxalate AdvReac Unknown AGITATION Verified 05/17/23 09:53 [From MOOVIAapro] Home Medications Medication Instructions Recorded Confirmed Type multivitamin (Daily Multi-Vitamin 1 ea PO DAILY 12/12/16 05/17/23 History tablet) eszopiclone 2 mg tablet (Lunesta) 2 mg PO QHS PRN insomnia #30 tabs 05/19/22 05/17/23 Rx omeprazole 20 mg capsule,delayed 20 mg PO DAILY #60 caps 05/31/22 05/17/23 Rx release ubrogepant 100 mg tablet (Ubrelvy) See Rx Instructions .Route 02/07/23 05/17/23 Rx .COMPLEX #14 tabs erenumab-aooe 140 mg/mL 140 mg subcut QMONTH #1 mL 03/01/23 05/17/23 Rx subcutaneous auto-injector (Aimovig Autoinjector) acetaminophen 500 mg tablet 1,000 mg (2 x 500 mg) PO TID #90 05/17/23 Rx tabs aspirin 81 mg tablet,delayed 81 mg PO BID #60 tabs 05/17/23 Rx release celecoxib 200 mg capsule 200 mg PO BID #60 caps 05/17/23 Rx gabapentin 300 mg capsule 300 mg PO QHS #14 caps 05/17/23 Rx oxycodone 5 mg tablet 5 mg PO Q4H PRN pain #20 tabs 05/17/23 Rx Exam Resp Effort & Inspection: normal respiratory effort Auscultation: clear to auscultation bilaterally Cardio Rate: regular rate Rhythm: regular rhythm
[2023-05-17] MEDS: Acetaminophen 500 MG TAB 1000 MG PO (10:15)
[2023-05-17] MEDS: Gabapentin 300 MG CAP PO (10:16)
[2023-05-17] MEDS: Celecoxib 200 MG CAP 400 MG PO (10:16)
[2023-05-17] MEDS: Lactated Ringers 1,000 ML 80 ML IV (10:16)
--- NOTE | 2023-05-17 11:36 | W.ANESNERVE ---
Nerve Block Single Injection Procedure Date and Time Date Performed: 05/17/23 Procedure Start: 11:36 Location Where Procedure Performed Procedure Location: Day Surgery Unit Reason Performed: Postoperative Analgesia Requesting Provider: Eduard Gary Timeout Performed Timeout Performed: Yes Monitoring Used ECG, Blood Pressure and SpO2 Sterility Sterility: Hand Hygiene, Surgical Cap, Surgical Mask, Sterile Gloves and Chlorhexidine Sedation Given During Procedure Sedation Given (Indicate Dose Given): Versed IV Dose:: 2 mg Patient Mental Status Patient Mental Status: Awake Nerve Block 1st Nerve Block: Laterality: Right Block Type: Adductor Canal Ultrasound Image Saved?: Yes Needle / Catheter Used: 100mm SonoPlex II Local Anesthetic Bolus (Indicate Dose Given): Lidocaine used for local infiltration of skin and Bupivacaine 0.25% Dose:: 7 mL Additives (Indicate Dose Given): None Ultrasound: Sterile probe cover and gel used Nerve Stimulator: Supplement to Ultrasound use and No twitch or parasthesia noted < 0.5 mA Paresthesia: None Procedure Tolerated: No Complications Procedure Outcome: Successful Performed By: Prabhakar Mendieta 2nd Nerve Block: Laterality: Right Block Type: Other (anterior femoral cutaneous) Ultrasound Image Saved?: Yes Needle / Catheter Used: 100mm SonoPlex II Local Anesthetic Bolus (Indicate Dose Given): Injected in 3-5ml increments after negative blood aspiration and Bupivacaine 0.25% Dose:: 5 mL Additives (Indicate Dose Given): None Ultrasound: Sterile probe cover and gel used Nerve Stimulator: Supplement to Ultrasound use and No twitch or parasthesia noted < 0.5 mA Paresthesia: None Procedure Tolerated: No Complications Procedure Outcome: Successful Performed By: Prabhakar Mendieta
[2023-05-17] MEDS: ceFAZolin 2 GM/50 ML BAG IVPB (12:20)
--- NOTE | 2023-05-17 14:17 | W.ANESPOSTOP ---
Postoperative Evaluation Date, Time and Location Date Performed: 05/17/23 Time Performed: 14:17 Patient Location: PACU Vital Signs Most Recent Imported Vital Signs: Most Recent Vital Signs Temp Pulse Resp BP Pulse Ox 36.5 C 67 15 117/77 98 05/17/23 14:10 05/17/23 14:10 05/17/23 14:10 05/17/23 14:10 05/17/23 14:10 Pain Score Most Recent Pain Score: Most Recent Pain Score Pain Level [Right Knee] 3 05/17/23 09:56 Pain Level 3 05/17/23 14:10 Assessment Mental Status: Awake (Alert & Oriented to Patient Baseline) Airway and Respiratory Function: Patent airway with normal (patient baseline) respiratory exam Cardiovascular Function: Hemodynamically Stable Hydration Status: Adequately Hydrated Nausea & Vomiting: No Nausea or Vomiting Pain: Pain is tolerable per patient Peripheral Nerve Block: Regional nerve block not resolved at time of post operative discharge
[2023-05-17] MEDS: oxyCODONE 5 MG TAB PO (14:40)
--- NOTE | 2023-05-17 16:57 | PT.INIE ---
PT Notes Visit Reasons: Open synovectomy R knee Physical Therapy Day Surgery Initial Evaluation Date: 05/17/2023 Referring Doctor: SABIHA Cruz PT Orders: PT CONSULT: S/P Ortho surgery Precautions: WBAT on R LE with AD. Patient Profile/Admitting Diagnosis: Benny is a 61-year-old male with post-traumatic osteoarthritis of the right knee status post right total knee arthroplasty on 05/17/2022, S/P arthroscopic synovectomy of 3 compartments of R knee due to R knee synovitis and painful R TKA on 08/23/2022, and S/P open synovectomy today due to arthrofibrosis of R TKA on POD 0. PMHX: All Active Problems Migraine (Chronic) Painful total knee replacement, right (Acute) Depression (Chronic) Pain disorder associated with psychological factors and medical condition (Acute) Psychological and behavioral factors associated with disorders or diseases classified elsewhere (Acute) Chronic pain (Chronic) Arthrofibrosis of total knee arthroplasty (Acute) Right Arthroscopic synovectomy: 08/23/2022ain in throat (Acute) Major depressive disorder (Chronic) Status migrainosus (Chronic) Migraine headache without aura (Chronic) Migraine headache with aura (Chronic) Fatigue (Chronic) Chronic daily headache (Chronic) DARRYL (obstructive sleep apnea) (Chronic) mild when supine, moderate during REM sleep. unable to tolerate CPAP .Chronic pruritic rash in adult (Chronic) reaction to sun exposure Medical History Synovitis of right knee Lumbar disc herniation with radiculopathy Low back pain Tear of medial meniscus of right knee Left rotator cuff tear Bursitis of left shoulder Tendinitis of long head of biceps brachii of left shoulder Sciatica of right side (04/20/16) Acquired hallux rigidus (10/15/13) left foot Surgical History H/O synovectomy (~07/2022) Status post total right knee replacement (05/17/22) History of colonoscopy History of arthroscopic knee surgery Gamekeeper's thumb of right hand S/P ACL repair Status post hemorrhoidectomy Social History/Home Situation: Lives with in a private home with2 steps to enter with no rails. Independent with all aspects of ADLs prior to surgery. Has a farm. Equipment Owned/DME: Bilateral axillary crutches Subjective: Reports 4-5/10 pain in the R knee area that subsided with ambulation actvity. Denies chest pain and lightheadedness throughout session. Reported headache and some woosiness that Nurse Naa was updated about. Vital signs were WNL and so Nurse Jacome gave patient soda to drink. Objective: General Observation: Supine in bed. LUNA wraps to R LE. Cryocuff to right knee. TEDS on the leg. Mental Status: Alert and oriented x 4 Pain: As above ROM: Right Lower Extremity: Hip flexion WFL. Hip abduction WFL. Knee flexion WFL. Ankle dorsiflexion WFL. Ankle plantarflexion WFL. Left Lower Extremity: Hip flexion WFL. Hip abduction WFL. Knee flexion 0-100 degrees. Knmee extension 100-0 degree. Ankle dorsiflexion WFL. Ankle plantarflexion WFL. Strength: Right Lower Extremity: Hip flexors 5/5. Hip abductors 5/5. Knee flexors 5/5. Knee extensors 5/5. Ankle dorsiflexors 5/5. Ankle plantarflexors 5/5. Left Lower Extremity: Hip flexors 4/5. Hip abductors 4/5. Knee flexors 3-/5. Knee extensors 4-/5. Ankle dorsiflexors 5/5. Ankle plantarflexors 5/5. Sensation: Intact as to pain and light [ressure in B LE Bed Mobility/Transfers: Minimal cueing provided for use of B hands as needed for support, movement sequence, Ad management, and and posture to reduce fall risk and minimize pain report Supine to sit standby assist Sit to stand standby assist Stand to sit standby assist Bed to chair standby assist Gait: Facilitated safe and correct performance of level surface ambulation covering a distance of 150 feet using front-wheeled walker with supervision with minimal verbal cueing provided for increased knee flexion on the left during swing phase of gait, AD management and posture. Step through reciprocal heel toe gait pattern. No loss of balance. No shortness of breath. Stairs: Data patient with safe and correct negotiation of 6 x 4 inch steps 4 x 6 inch steps while holding onto bilateral rails with standby assist required minimal verbal cueing for increased the right knee flexion at each ascent, hand placement, and safety. Balance: Static Sitting: Normal Dynamic Sitting: Normal Static Standing: Fair Dynamic Standing: Fair Special Tests: Mobility Limitations Standardized Measure [facility] AM-PAC 6 clicks Basic Mobility Inpatient Short Form: Raw Score: 23 CMS Score: 11% deficit Informed Consent/Education: Patient instructed in purpose of PT consult. Packet containing post-op exercise protocol has been given to patient. Education and training on initial set of exercises that can be done at home have been completed with patient. Trained patient with correct performance of exercises below to maximize motor control, joint flexibility, soft tissue extensibility of the L knee musculature: Access Code: [email or web address] URL: [email or web address] Date: 05/17/2023 Prepared by: Cecilia Darby Exercises - Supine Quad Set - 1 x daily - 7 x weekly - 1 sets - 10 reps - 5 hold - Supine Heel Slide - 1 x daily - 7 x weekly - 1 sets - 10 reps - 5 hold - Supine Ankle Pumps - 1 x daily - 7 x weekly - 1 sets - 10 reps - 5 hold - Small Range Straight Leg Raise - 1 x daily - 7 x weekly - 1 sets - 10 reps - 5 hold - Seated March - 1 x daily - 7 x weekly - 1 sets - 10 reps - 5 hold Assessment: Benny requires the use of front-wheeled walker for all mobility ADL performance to maximize independence and reduce fall risk. Patient presents with clinical signs and symptoms consistent with current/admitting diagnoses that have resulted to mobility limitations, gait instability, generalized weakness, and impairment of motor control as demonstrated by the following impairment level findings: 1. Decreased strength to right knee major muscle groups 2. Impaired standing balance 3. Limitation of joint range of motion in left knee Impairments are contributing to the following functional limitations: 1. Inability to safely ambulate without assistive device 2. Increase completion time for mobility ADL performance 3. Increased fall risk Patient is assessed as a [id number] moderate complexity based on the following: History: 61-year-old male with impairment level findings, functional limitations, and past medical history as indicated above Examination: Demonstrable impairment in strength, balance, and mobility level with underlying impairments and functional limitations as documented above Presentation: Evolving Decision Makin moderate complexity Goals: N/A. PT evaluation and 1-2 treatment sessions only for functional mobility training using recommended AD and for HEP instruction. Plan of Care/Treatment Plan: N/A. PT evaluation and 1-2 treatment session only for functional mobility training using recommended AD and for HEP instruction. DISCHARGE RECOMMENDATIONS: [] Home with no services [] [] Home with services [specify] [X] Home with outpatient PT. Home when medically cleared by orthopedic surgeon. Recommend outpatient PT services in order to optimize functional mobility outcomes and facilitate independent community ambulation without an assistive device. [] SNF for continued rehabilitation [] [] Sample [facility] [] [] SNF versus LTC based on ability to participate and progress [] TREATMENT CODE/TIME: 72948 x 21 minutes for 1 unit beginning at 14:41 PM. Thank you for the opportunity to participate in the care of this patient. Cecilia Darby PT, DPT, CLT [facility] [place], [place]
--- NOTE | 2023-05-17 17:18 | ROE_ITS ---
Date of service: 05/17/23 Time of Service: 12:15 Operative Note Operative Note DATE OF PROCEDURE: 05/17/23 PRE-OP DIAGNOSIS: Right knee arthrofibrosis, painful right knee replacement PROCEDURE: Complete synovectomy with Polyethylene Exchange -right knee SURGEON: Eduard Gary BUSINESS EDUCATION TEACHER: Benny Dodson ANESTHESIA TYPE: General LMA/ETT Refer to Anesthesia Record ESTIMATED BLOOD LOSS: 150 TOURNIQUET TIME: 0 COMPLICATIONS: None Patient was transported to: PACU Patient's condition: stable Indications: Benny is a 62-year-old male who is 1 year status post right knee replacement but unfortunately he has been dealing with notable stiffness and pain about the right knee. This did improve after arthroscopic synovectomy but the symptoms returned. Therefore, I did offer an open synovectomy. I reviewed this in the office. Please see the previous office note for complete detailed history. Once again today I reviewed the risk of the procedure to include bleeding, infection, pain, recurrent stiffness, instability, damage to nerves and vessels, damage to muscle and tendons, need for repeat procedures. Despite these risk, he elects to proceed. Procedure Description: Benny was greeted in the preoperative holding area where the correct side was identified and marked. The consent was reviewed with the patient and signed. The history and physical was updated. All questions were answered. Preoperative mediacations were administered: Acetaminophen 1000mg, Celebrex 400mg, and Gabapentin 300mg. Benny was taken back to the operating room. A general anesthestic was administered. The patient was placed into the supine position on the operating room table. Posts were placed for positioning during the procedure. All bony prominences were well padded. Prophylactic antibiotics in the form of Cefazolin were administered. The right leg was then prepped with Chloraprep and draped in a standard fashion with impervious stockinette. A second prep with Chloraprep was performed prior to application of Iodine impregnated skin protection. A timeout to confirm correct identity, side and site, procedure, allergies, anesthesia, and medical concerns was performed. With the knee in some flexion, a midline incision was made overlying the knee utilizing the previous incision. Full thickness skin flaps were raised once the extensor mechanism was encountered. These were raised medially and laterally. There is notable adhesion between the skin and the deeper layers throughout here. This elevation of the skin flap was taken medially and laterally such that there was separation of the overlying skin from the underlying fascia and extensor mechanism. Any bleeding was controlled with electrocautery. With the extensor mechanism identified, the arthrotomy was performed. This tissue was significantly thickened. It had a woody texture to it. Once the arthrotomy was completed the synovium was resected utilizing 2 Allis and 2 Fe clamps working medially down into the gutter, superiorly and then laterally into the gutter. Time was taken around the patella to release these tissues as well. The medial retinacular tissues were then elevated off the medial?proximal tibia in a subperiosteal fashion. Debridement was carried around the entire periphery of the tibial plateau. The polyethylene was then removed for better visualization. Debridement continued posteriorly. I also utilized an electrocautery to recessed the posterior capsular tissues centrally. I also used a curved osteotome to further dissect the capsule adhesions from the posterior femur. Once again, the tissues surrounding the knee and the capsule were very woody in nature and had very little stretch. I cautiously watch these to make sure there was no avulsion injury. A rongeur was also utilized to go through the knee itself remove any loose remnant tissue. The deep tissues were then injected with a mixture of ropivacaine, epinephrine, clonidine, and ketorolac. The knee was irrigated with Irrisept chlorhexidine solution. I then placed a new size 8 x 5 mm polyethylene. This was impacted into position and confirmed to be in a good position. The knee was then once again irrigated with saline as well as Irrisept chlorhexidine solution. The remnant injection was provided throughout the deep tissues and the skin. The arthrotomy was then closed with interrupted #2 FiberWire followed by a #2 strata fix, barbed suture. The deep tissues were closed with 0 and 2-0 Vicryl. The skin was closed with a running 3-0 Monocryl in a subcuticular fashion. This was reinforced with skin glue. A Mepilex silver dressing was applied along with a [id number] LUNA wrap. A CryoCuff was applied. Benny was transferred to the hospital stretcher without difficulty an suffering no apparent complication. Benny has a gaurded prognosis. Aspirin 81mg BID will be used for DVT prophylaxis.
== END 2023-05-17 16:50 | disposition home or self-care (01) ==
PROVIDERS: PCP Family Medicine; Visit Provider Student in an Organized Health Care Education/Training Program
PROC: (CPT 27425; principal; 2023-05-17 12:00)
PROC: (CPT 27335; 2023-05-17 12:00)
DX: T84.82XA Fibrosis due to internal orthopedic prosthetic devices, implants and grafts, initial encounter (principal); T84.84XA Pain due to internal orthopedic prosthetic devices, implants and grafts, initial encounter; Z96.651 Presence of right artificial knee joint
CPT/HCPCS: 27335; 27486; 76942; 97162; J0690; J1100; J2250; J2405; J2704; J3475

== ENCOUNTER 2023-06-29 04:03 | Outpatient (RCR) | payer MEDICARE, MEDICAID, SELFPAY ==
[2023-06-29] MEDS: EPTINEZUMAB-JJMR 300 MG in Normal Saline 100 ML 206 MG IVPB (11:33)
[2023-06-29] MEDS: Normal Saline Flush 10 ML SYR IVP (11:33)
== END 2023-07-27 23:59 | disposition home or self-care (01) ==
LOC: INF 04:03
PROVIDERS: PCP Family Medicine; Visit Provider Psychiatry & Neurology Neurology
DX: G43.709 Chronic migraine without aura, not intractable, without status migrainosus
CPT/HCPCS: 96365; J3032

== ENCOUNTER → 2023-08-09 09:59 | Outpatient (BNVA) | payer MEDICARE, MEDICAID, SELFPAY | PROVIDERS: PCP Family Medicine; Referring Provider Family Medicine; Visit Provider Nurse Practitioner Adult Health | DX: G47.33 Obstructive sleep apnea (adult) (pediatric) (principal); F39 Unspecified mood [affective] disorder; G43.111 Migraine with aura, intractable, with status migrainosus; G43.011 Migraine without aura, intractable, with status migrainosus | CPT/HCPCS: 99214 ==

== ENCOUNTER 2023-08-14 15:22 | Outpatient (CLI) | payer MEDICARE, MEDICAID, SELFPAY ==
--- NOTE | 2023-08-14 10:53 | DI.RAD_ITS ---
Exam(s) XR KNEE RT 2V AP,LAT EXAM: XR KNEE RT 2V AP,LAT CLINICAL HISTORY: ANNUAL F/U R TKA. TECHNIQUE: 2D digital imaging was performed. Three views. COMPARISON: CR XR KNEE RT 2V AP,LAT from 08/11/2022 FINDINGS: BONES: No acute fracture is present. No bony destructive lesion is seen. There has been no change in the total knee prosthesis. JOINTS: The knee is normally aligned. No joint effusion is seen. SOFT TISSUE: Normal. IMPRESSION: Stable appearance of knee prosthesis. DATA REPOSITORY: RADIATION DOSE DELIVERED:
== END 2023-08-14 15:23 | disposition home or self-care (01) ==
LOC: DIORS 15:22
PROVIDERS: PCP Family Medicine; Visit Provider Student in an Organized Health Care Education/Training Program
DX: Z96.651 Presence of right artificial knee joint (principal); Z47.1 Aftercare following joint replacement surgery
CPT/HCPCS: 73560

== ENCOUNTER 2023-09-08 10:08 | Outpatient (CLI) | payer MEDICARE, MEDICAID, SELFPAY ==
[2023-09-08 12:33] LABS: Anion Gap 7.7 mmol/L (3-11); BUN 21 mg/dL (7-18); CO2 28.3 mmol/L (21.0-32.0); CREATININE 1.2 mg/dL (0.70-1.30); Calcium 8.9 mg/dL (8.5-10.1); Calculated LDL 123 mg/dL (<100); Chloride 108 mmol/L (98-107); Cholesterol 193 mg/dL (<200); Estimated GFR 69.23 (mL/min/1.73m2); Glucose 64 mg/dL (74-106); HDL Cholesterol 47 mg/dL (40-60); Potassium 4.1 mmol/L (3.5-5.1); Sodium 144 mmol/L (136-145); Triglyceride 115 mg/dL (<150)
[2023-09-08 18:22] LABS: PSA, Screening 1.1 ng/mL (<=4.5)
[2023-09-08 19:54] LABS: Hepatitis C Ab w Rflx HCV PCR Negative (Negative)
[2023-09-08 20:01] LABS: HIV-1/2 Ag & Ab Screen Negative (Negative)
== END 2023-09-08 10:09 | disposition home or self-care (01) ==
LOC: LOS 10:09
PROVIDERS: PCP Family Medicine; Referring Provider Family Medicine; Visit Provider Family Medicine
DX: Z11.59 Encounter for screening for other viral diseases (principal); Z13.1 Encounter for screening for diabetes mellitus; Z13.6 Encounter for screening for cardiovascular disorders; Z12.5 Encounter for screening for malignant neoplasm of prostate; Z11.4 Encounter for screening for human immunodeficiency virus [HIV]
CPT/HCPCS: 36415; 80048; 80061; 84153; 86803; 87389

== ENCOUNTER 2023-09-27 04:55 | Outpatient (RCR) | payer MEDICARE, SELFPAY ==
[2023-09-27] MEDS: Normal Saline Flush 10 ML SYR IVP (11:16)
[2023-09-27] MEDS: EPTINEZUMAB-JJMR 300 MG in Normal Saline 100 ML 206 MG IVPB (11:16)
== END 2023-10-27 23:59 | disposition home or self-care (01) ==
LOC: INF 04:55
PROVIDERS: PCP Family Medicine; Visit Provider Psychiatry & Neurology Neurology
DX: G43.709 Chronic migraine without aura, not intractable, without status migrainosus
CPT/HCPCS: 96365; J3032

== ENCOUNTER → 2023-12-13 08:30 | Outpatient (BNVA) | payer MEDICARE, MEDICAID, SELFPAY | PROVIDERS: PCP Family Medicine; Visit Provider Nurse Practitioner Adult Health | DX: G43.109 Migraine with aura, not intractable, without status migrainosus (principal); G43.009 Migraine without aura, not intractable, without status migrainosus | CPT/HCPCS: 99214 ==

== ENCOUNTER 2024-04-01 01:45 | Outpatient (CLI) | payer MEDICARE, SELFPAY ==
--- NOTE | 2024-04-01 | DI.MRI_ITS ---
Exam(s) MR BRAIN WO EXAM: MR BRAIN WO CLINICAL HISTORY: RT VISION LOSS,HEADACHE,H53.21 TECHNIQUE: Multiplanar multisequence MRI of the brain was performed. COMPARISON: MR MR BRAIN WO from 12/06/2021 FINDINGS: VENTRICLES AND EXTRA AXIAL SPACES: Normal in size and morphology for the patient's age. MIDLINE SHIFT: None. CEREBRAL PARENCHYMA: No focus of restricted diffusion to suggest acute infarct. No space-occupying le john identified. HEMORRHAGE: None. BRAINSTEM/CEREBELLUM: Normal. CALVARIUM: Normal. VISUALIZED PARANASAL SINUSES/MASTOIDS:There is mild mucosal thickening in the maxillary sinuses but n o air-fluid levels are seen. The remaining visualized paranasal sinuses and mastoid air cells are cl ear. [place] OF [place]: Normal flow void. PITUITARY GLAND: Unremarkable. OTHER FINDINGS: None. IMPRESSION: No acute intracranial process. No significant intracranial findings are seen. DATA REPOSITORY:
--- NOTE | 2024-04-01 | DI.US_ITS ---
Exam(s) US CAROTID EXAM: US CAROTID CLINICAL HISTORY: H53.121 Transient visual loss of right eye. TECHNIQUE: Ultrasound carotids performed using grayscale, color-flow, and spectral Doppler imaging. COMPARISON: US US SOFT TISSUE HEAD OR NECK from 08/08/2022 FINDINGS: RIGHT CAROTID ARTERY: Plaque: No plaque identified. Velocity elevation: None. LEFT CAROTID ARTERY: Plaque: No plaque identified. Velocity elevation: None. VERTEBRAL ARTERIES: Antegrade flow. Measurements: R Bulb: 132.5cm/s PS / 19.3cm/s ED R CCA: 116.1cm/s PS / 19.3cm/s ED R ECA: 134.3cm/s PS / 13.9cm/s ED R ICA Prox: 122.1cm/s PS / 18.1cm/s ED R ICA Mid: 66.6cm/s PS / 24.3cm/s ED R ICA Distal: 67.3cm/s PS /19.3cm/s ED R Vert: 47.3cm/s PS / 9.7cm/s ED R SVR: 1.1 R DVR: 1 L Bulb: 109.5cm/s PS / 9.6cm/s ED L CCA: 120cm/s PS / 20.2cm/s ED L ECA: 119.1cm/s PS / 13cm/s ED L ICA Prox: 68.2cm/s PS / 21.2cm/s ED L ICA Mid: 73.5cm/s PS / 26.5cm/s ED L ICA Distal: 66.2cm/s PS / 27.1cm/s ED L Vert: 60.6cm/s PS / 18.3cm/s ED L SVR: 0.9 L DVR: 0.5 IMPRESSION: No evidence for hemodynamically significant carotid stenosis. Criteria for Carotid Stenosis: Normal: ICA PSV <125 cm/s no plaque or intimal thickening is visible. <50% stenosis: ICA PSV <125 cm/s and plaque or intimal thickening is visible. 50-69% stenosis: ICA PSV is 125-250 cm/s and plaque is visible. >70% stenosis to near occlusion: ICA PSV >250 cm/s with visible plaque and luminal narrowing. DATA REPOSITORY:
== END 2024-04-01 02:05 ==
LOC: DI 01:45
PROVIDERS: PCP Family Medicine; Visit Provider Family Medicine
DX: H53.121 Transient visual loss, right eye (principal)
CPT/HCPCS: 70551; 93880

== ENCOUNTER 2024-05-20 11:00 | Outpatient (CLI) | payer MEDICARE, SELFPAY ==
--- NOTE | 2024-05-20 10:15 | DI.RAD_ITS ---
Exam(s) XR KNEE RT 2V AP,LAT EXAM: XR KNEE RT 2V AP,LAT CLINICAL HISTORY: HISTORY OF RIGHT TKA. TECHNIQUE: 2D digital imaging was performed. Three views. COMPARISON: No exams were available for comparison FINDINGS: BONES: No acute fracture is present. No bony destructive lesion is seen. JOINTS: The knee prosthesis is normally aligned. No joint effusion is seen. SOFT TISSUE: Normal. IMPRESSION: Stable appearance right total knee prosthesis DATA REPOSITORY: RADIATION DOSE DELIVERED:
== END 2024-05-20 11:01 | disposition home or self-care (01) ==
LOC: DIORS 11:16
PROVIDERS: PCP Family Medicine
DX: Z47.1 Aftercare following joint replacement surgery (principal); Z96.651 Presence of right artificial knee joint
CPT/HCPCS: 99213; 73560

== ENCOUNTER 2024-07-01 11:26 | Outpatient (CLI) | payer MEDICARE, SELFPAY ==
--- NOTE | 2024-07-01 11:00 | DI.RAD_ITS ---
Exam(s) XR HIP RT COMPLETE AP PELVIS EXAM: XR HIP RT COMPLETE AP PELVIS CLINICAL HISTORY: right hip pain. TECHNIQUE: 2D digital imaging was performed. Two views COMPARISON: CR LUMBAR SPINE COMPLETE from 02/09/2016 FINDINGS: BONES: No acute fracture is present. No bony destructive lesion is seen. JOINTS: No dislocation present. The hip joint spaces are maintained. There is moderate bilateral a cetabular spurring. There is mild spurring at the margin of the femoral heads bilaterally. The SI j oints and pubic symphysis are unremarkable. SOFT TISSUE: Normal. IMPRESSION: Bilateral acetabular spurring without significant joint space narrowing. DATA REPOSITORY: RADIATION DOSE DELIVERED:
== END 2024-07-01 11:27 | disposition home or self-care (01) ==
LOC: DIORS 11:26
PROVIDERS: PCP Family Medicine; Referring Provider Family Medicine; Visit Provider Student in an Organized Health Care Education/Training Program
DX: M16.11 Unilateral primary osteoarthritis, right hip; T84.82XA Fibrosis due to internal orthopedic prosthetic devices, implants and grafts, initial encounter; Z96.651 Presence of right artificial knee joint
CPT/HCPCS: 20611; 99214; J1010; 73502

== ENCOUNTER 2024-11-05 02:14 | Outpatient (RCR) | payer MEDICARE, SELFPAY ==
[2024-11-05] MEDS: Ketorolac 30 MG/ML VIAL (12:16)
[2024-11-05] MEDS: Normal Saline 1,000 ML 1000 ML IV (12:16)
[2024-11-05] MEDS: diphenhydrAMINE 50 MG/ML VIAL (12:17)
[2024-11-05] MEDS: Dexamethasone 10 MG/ML VIAL (12:17)
[2024-11-05] MEDS: Metoclopramide 10 MG/2 ML VIAL (12:18)
[2024-11-05] MEDS: MAGNESIUM SULFATE 1 GM/100 ML BAG 200 GM (12:25)
== END 2024-11-25 23:59 | disposition home or self-care (01) ==
LOC: INF 02:14
PROVIDERS: PCP Family Medicine; Visit Provider Family Medicine
DX: G43.E11 Chronic migraine with aura, intractable, with status migrainosus (principal)
CPT/HCPCS: 96365; 96366; 96374; 96375; J1100; J1200; J1885; J2765; J3475

== ENCOUNTER 2024-12-02 03:27 | Outpatient (RCR) | payer MEDICARE, SELFPAY ==
[2024-12-02] MEDS: EPTINEZUMAB-JJMR 300 MG in Normal Saline 100 ML 206 MG IVPB (13:04)
[2024-12-02] MEDS: Normal Saline Flush 10 ML SYR IVP (13:04)
== END 2024-12-26 23:59 | disposition home or self-care (01) ==
LOC: INF 03:27
PROVIDERS: PCP Family Medicine; Visit Provider Family Medicine
DX: G43.E11 Chronic migraine with aura, intractable, with status migrainosus (principal)
CPT/HCPCS: 96365; J3032

== ENCOUNTER 2025-03-07 00:39 | Outpatient (RCR) | payer MEDICARE, SELFPAY ==
[2025-03-07] MEDS: EPTINEZUMAB-JJMR 300 MG in Normal Saline 100 ML 206 MG IVPB (13:40)
[2025-03-07] MEDS: Normal Saline Flush 10 ML SYR IVP (13:42)
== END 2025-03-28 23:59 | disposition home or self-care (01) ==
LOC: INF 00:39
PROVIDERS: PCP Family Medicine; Visit Provider Family Medicine
DX: G43.E11 Chronic migraine with aura, intractable, with status migrainosus (principal)
CPT/HCPCS: 96365; J3032